=== PATIENT | male | born 1960 | race Caucasian/White ===

== ENCOUNTER 2023-03-19 20:05 | Inpatient (IN) | payer SELFPAY ==
[2023-03-19] VITALS (8 sets, daily range): BP systolic 99–156; BP diastolic 69–144; PULSE 92–104; RESP 18–26; TEMP 36.5–36.6; O2SAT 92–97; BMI 47.0; BMI 22.4
--- NOTE | 2023-03-19 20:25 | CT_ITS ---
We are attempting to reach an attending provider to discuss findings. An addendum with communication details will be sent when the communication is complete. INDICATION: Neuro deficit, acute, stroke suspected EXAMINATION: CT BRAIN - CT Head Stroke Protocol W/O Contrast Injection TECHNIQUE: Multiple axial images were obtained of the head without intravenous contrast. A radiation dose optimization technique was used for this scan. IV Contrast dosage and agent: None. COMPARISON: No relevant prior comparison study available FINDINGS: BRAIN PARENCHYMA: No intra- or extra-axial hemorrhage. No evidence of acute infarct. No intracranial mass or mass effect. There is preservation of the salgado/white matter interface. Posterior fossa structures are unremarkable. CSF SPACES: Probable small 4.4 cm) overlying the right frontal lobe. Otherwise CSF spaces Appropriate for age. No hydrocephalus. Basal cisterns are patent. CALVARIUM, SKULL BASE, PARANASAL SINUSES AND MASTOID AIR CELLS: Clear. Suspicious, diffusely chalky appearance to the entire small for which metastatic disease cannot be excluded. Correlate clinically and consider bone scan. ORBITS: Both globes, extraocular muscles, optic nerves and retrobulbar fat appear unremarkable. ASPECTS Score for Acute Strokes: 10 CT/STROKE Brain/Head without Cont IMPRESSION: No acute abnormality or evidence for CVA. Suspicious appearance of the skull, see comments above. Electronically Signed: Ken Claire MD at 20:53 EST ,
--- NOTE | 2023-03-19 20:25 | EKG12_ITS ---
Test Reason : STROKE Blood Pressure : / mmHG Vent. Rate : 095 BPM Atrial Rate : 095 BPM P-R Int : 168 ms QRS Dur : 074 ms QT Int : 360 ms P-R-T Axes : 054 042 -58 degrees QTc Int : 452 ms Normal sinus rhythm Low voltage QRS ST & T wave abnormality, consider inferior ischemia Abnormal ECG Confirmed by RUTH CONTRERAS, ABHISHEK ([id number]), newspaper editor managing MITCHELL BROWN ([id number]) on 03/28/2023 10:07:41 AM Referred By: Confirmed By:ABHISHEK MIRANDA MD
--- NOTE | 2023-03-19 20:26 | CT_ITS ---
STUDY: CTA HEAD AND NECK WITH CONTRAST REASON FOR EXAM: Male, 62 years old. Neuro deficit, acute, stroke suspected RADIATION DOSAGE (If Supplied By Facility): CTDIvol = ( 23.38 ) mGy, DLP = ( 706.36 ) mGycm TECHNIQUE: CT angiography was performed with a multi-detector CT scanner. Data acquisition was obtained from the skull base through the vertex following intravenous administration of IV 100mL Isovue-370. MIP images were reconstructed from the axial data set. Post-processing of the angiographic images was performed, with multiplanar reformation and 3D reconstruction. Individualized dose optimization techniques were used for this CT. COMPARISON: No relevant priors. FINDINGS: Normal bilateral petrous carotid arteries. Normal right cavernous carotid artery with a normal supraclinoid bifurcation. Normal left cavernous carotid artery with a normal supraclinoid bifurcation. Normal right A1 segments of the anterior cerebral artery. Normal left A1 segments of the anterior cerebral artery. Normal intact anterior communicating artery (ACOM). Normal bilateral A2 segments of the anterior cerebral arteries. Normal right M1 and M2 segments of the middle cerebral arteries, with a normal M1 bifurcation. Normal left M1 and M2 segments of the middle cerebral arteries, with a normal M1 bifurcation. Normal right posterior communicating artery (PCOM). Normal left posterior communicating artery (PCOM). Normal bilateral vertebral arteries. Normal basilar artery with a normal basilar bifurcation. The visualized bilateral superior cerebellar (SCA) arteries are normal. Normal bilateral P1, P2 and visualized P3 segments of the posterior cerebral arteries. There is no demonstrated aneurysm of the ramona of [place]. There is no demonstrated abnormality of the visualized brain. AORTIC ARCH: Normal visualized aortic arch. Normal origins of the brachiocephalic, left common carotid, and left subclavian arteries. RIGHT CAROTID ARTERIES: Normal right common carotid artery (CCA). Normal right common carotid bulb. Normal origin of the right internal carotid (ICA) artery without a hemodynamically significant stenosis. Normal visualized cervical portion of the right internal carotid artery. Normal origin of the right external carotid artery (ECA). LEFT CAROTID ARTERIES: Normal left common carotid artery (CCA). There is mild atherosclerotic plaque formation with minimal narrowing of the left carotid bulb. There is mild atherosclerotic plaque formation of the origin of the left internal carotid artery with less than 50% cross sectional diameter stenosis. Normal visualized cervical portion of the left internal carotid artery. Normal origin of the left external carotid artery (ECA). VERTEBRAL ARTERIES: Normal bilateral vertebral arteries. CT/STROKE CTA Head AND Neck W/Con IMPRESSION: Normal for age CTA Head and neck with contrast. No occlusions, no significant stenoses. N.B. : The above Results were Read Back by Ken Claire MD to Neymar Harvey and understanding confirmed on 03/19/2023 21:01:41 (ET). Electronically Signed: Ken Claire MD at 21:05 EST ,
--- NOTE | 2023-03-19 20:26 | EDS_ITS ---
HPI History of Present Illness Chief Complaint: Neuro S/Sx Detail of Chief Complaint: Difficulty with speech Informant: patient and family Narrative Narrative: Patient presents the emergency department with complaint of difficulty with spee ch that started rather suddenly approximately 1840 1 PM. Daughter was with patient taken him to doctor's appointment when he started having a difficult time saying what he wanted to say can only get about every third word out. Symptoms lasted about 10 minutes and then resolved. She did not notice any facial droop or weakness to the extremities. Patient currently being treated for prostate cancer with bone metastasis. Patient is lost 20 pounds in the last 33 days. Patient states that he can only take a few bites of food and he feels full and cannot eat anymore. He complains of pain in his back and down his left leg. Patient prostate cancer with metastasis to bone and lung. [facility] Medical History (Updated 03/19/23 @ 21:[address] Neymar Harvey, DO) Branchial cleft cyst History of chemotherapy Home Medications acetaminophen 650 mg tablet,extended release (Tylenol Arthritis Pain) 650 mg PO TID 01/04/23 [History Last Taken Unknown] calcium carbonate 600 mg calcium (1,500 mg) tablet 1,200 mg PO TIDWMEAL 01/04/23 [History Last Taken Unknown] enzalutamide 40 mg capsule (Xtandi) 160 mg PO DAILY 01/04/23 [History Last Taken Unknown] gabapentin 100 mg capsule 100 mg PO TID 01/04/23 [History Last Taken Unknown] leuprolide (3 month) 11.25 mg (3 month) intramuscular syringe kit (Lupron Depot) 11.25 mg IM [id number] 01/04/23 [History Last Taken Unknown] oxycodone 5 mg tablet See Rx Instructions PO Q6H 01/04/23 [History Last Taken Unknown] tamsulosin 0.4 mg capsule 0.4 mg PO QHS 01/04/23 [History Last Taken Unknown] Allergy/AdvReac Type Severity Reaction Status Date / Time No Known Allergies Allergy Verified 03/19/23 20:15 Social History (Updated 01/04/23 @ 14:06 by Katie Huerta) Smoking Status: Current every day smoker tobacco type: cigarettes alcohol intake: never ROS ROS ED Review of Systems ROS Unobtainable: other Constitutional Constitutional ED: Reports lethargy; Denies chills, fever(s), sweats or weight loss Eyes Eyes: Denies blurry vision, change in vision or diplopia ENT ENT ED: Denies rhinorrhea or sore throat Cardiovascular Cardiovascular: Denies chest pain, orthopnea or racing heartbeat Respiratory/Chest Respiratory/Chest: Denies cough, dyspnea, dyspnea on exertion, orthopnea or sputum Gastrointestinal Gastrointestinal: Reports other Details: Weight loss ; Denies abdominal pain, diarrhea, nausea or vomiting Genitourinary Genitourinary ED: Denies dysuria, hematuria or urinary frequency Musculoskeletal Musculoskeletal: Reports back pain; Denies arthralgias, myalgias or neck pain Integumentary Denies abscess, Abrasions or rash Neurologic Neurologic: Reports other Details: Expressive aphasia ; Denies headache(s) or weakness Psychiatric Psychiatric: Denies anxiety, depression or suicidal thoughts Endocrine Endocrinology: Denies polydipsia, polyphagia or polyuria Hematologic/Lymphatic Hematologic/Lymphatic: Denies easy bleeding, easy bruising or lymphadenopathy Allergic/Immunologic Allergic/Immunologic ED: Denies mouth swelling, tongue swelling or urticaria EXAM Physical Exam Const Vital Signs: 03/19/23 20:07 03/19/23 20:24 03/19/23 20:25 Temperature 97.8 F 97.8 F Temperature Source Temporal Temporal Pulse Rate 104 H Respiratory Rate 26 H 24 H Blood Pressure 156/144 H 99/69 Blood Pressure Mean 148 79 Pulse Ox 95 95 Oxygen Delivery Method Room Air Room Air Room Air 03/19/23 20:25 03/19/23 20:52 Temperature 97.9 F Temperature Source Temporal Pulse Rate 98 92 Respiratory Rate 25 H 24 H Blood Pressure 99/69 107/72 Blood Pressure Mean 79 83 Pulse Ox 97 95 Oxygen Delivery Method Room Air Room Air Positive well nourished and well developed General Appearance ED: well developed and NAD HEENT Reports TM's clear and moist mucous membranes normocephalic and atraumatic; Negative for trauma or tenderness Tympanic Membrane ED: Yes TM's clear Eyes PERRL and EOMs intact bilaterally General Eye ED: Negative for pale conjunctiva or scleral icterus Neck no lymphadenopathy, supple and no JVD General: Negative for tenderness Chest Wall inspection of chest normal and palpation of chest normal Chest: Negative for tenderness Resp normal respiratory effort and clear to auscultation bilaterally Effort and Inspection: Negative for respiratory distress or pain with movement Auscultation: Negative for rhonchi, wheezes or diminished lung sounds Cardio regular rate, regular rhythm, S1 normal heart sound, S2 normal heart sound and no murmurs Peripheral Pulses: pulses 2+ throughout GI normal to inspection, nondistended, normoactive bowel sounds, soft to palpation, non-tender, non-distended and no masses Back/Spine no CVA tenderness and no thoracic nor lumbar tenderness Extremity normal to inspection General Extremety ED: Negative for edema General Extremity: Negative for edema Neuro oriented x3, CN's II-XII intact bilaterally, no sensory deficits noted and gait normal Neuro Narrative: NIH stroke scale 0. No focal deficits noted on exam. No facial droop. Sensorium / Orientation: awake, alert, oriented to person, oriented to place and oriented to time Motor Exam: strength 5/5 throughout and strength abnormal Psych mental status grossly normal Skin no rashes or lesions noted and no wounds MDM MDM MDM Narrative Medical decision making narrative: Patient presents with expressive aphasia that is now resolved. Patient being treated for prostate cancer with mets to the bone and lung. Patient losing weight and deconditioned. I did call a stroke team after evaluating the patient. At this point I do not feel he will be a thrombolytic candidate as his symptoms have resolved. Patient seen by stroke neurologist and patient is not a thrombolytic candidate as his symptoms are resolved. In the differential would be metabolic process versus TIA. IV line established on arrival. EKG obtained showed a sinus rhythm with a rate of [address] changes with subtle ST depression anterior laterally which is new when compared with prior EKG from 2011. Patient went immediately to CT and brain CT showed no acute process. Patient also had CTA head and neck which were unremarkable. CT of the brain did show some lytic lesions of the calvarium which may be related to his bony metastasis from prostate cancer. CBC with differential obtained showed a white count 6.5 with hemoglobin 12.2 and platelet count of 38,000. Chemistries unremarkable. LFTs showed an elevated AST of 264 and alk phos of 640. Troponin was 291. Chest x-ray showed diffuse metastatic disease of the chest wall. No infiltrate or pneumothorax or other acute process noted. Case discussed with hospitalist will evaluate patient for admission. Lab Data Attestation: I reviewed the patient's lab results. Labs: Laboratory Results - last 24 hr 03/19/23 03/19/23 20:13 20:15 WBC 6.5 RBC 4.11 L Hgb 12.2 L Hct 40.3 MCV 98.1 H MCH 29.7 MCHC 30.3 L RDW Std Deviation 59.0 H RDW Coeff of Nano 17.1 H Plt Count 38 L* MPV TNP Immature Gran % (Auto) 3.400 H Neut % (Auto) 64.6 Lymph % (Auto) 23.3 [place] % (Auto) 7.1 Eos % (Auto) 0.5 Baso % (Auto) 1.1 H Absolute Neuts (auto) 4.2 Absolute Lymphs (auto) 1.51 Nucleated RBC % 0.8 Differential Comment SEE COMMENT Diff Path Review May foll Platelet Estimate MKD DEC RBC Morphology N CHROM Anisocytosis 1+ Macrocytosis 1+ Sodium 133 L Potassium 3.8 Chloride 103 Carbon Dioxide 17.0 L Anion Gap 13 BUN 18 Creatinine 0.77 Estim Creat Clear Calc 101.39 Est GFR (MDRD) Af Amer 132 Est GFR (MDRD) Non-Af 109 BUN/Creatinine Ratio 23.5 H Glucose 133 H Calcium 8.4 L Total Bilirubin 1.10 H Direct Bilirubin 0.23 AST 264 H ALT 48 Alkaline Phosphatase 640 H Troponin I High Sens 291 H* Total Protein 7.1 Albumin 2.9 L Globulin 4.2 Lipase 32 POC Glucose 136 H Radiography Diagnostic Testing: Clinical Impression(s) from Imaging Studies Brain CT 03/19/23 20:25 IMPRESSION: No acute abnormality or evidence for CVA. Suspicious appearance of the skull, see comments above. Electronically Signed: Ken Claire MD at 20:53 EST , ADDENDUM: 03/19/232107 IMPRESSION: No acute abnormality or evidence for CVA. Suspicious appearance of the skull, see comments above. N.B. : The above Results were Read Back by Ken Claire MD to Neymar Harvey DO, and understanding confirmed on 03/19/2023 21:01:49 (ET). Electronically Signed: Ken Claire MD at 20:53 EST , Head/Neck CTA 03/19/23 20:26 IMPRESSION: Normal for age CTA Head and neck with contrast. No occlusions, no significant stenoses. N.B. : The above Results were Read Back by Ken Claire MD to Neymar Harvey and understanding confirmed on 03/19/2023 21:01:41 (ET). Electronically Signed: Ken Claire MD at 21:05 EST , ADDENDUM: 03/19/232 IMPRESSION: Normal for age CTA Head and neck with contrast. No occlusions, no significant stenoses. N.B. : The above Results were Read Back by Ken Claire MD to Neymar Harvey and understanding confirmed on 03/19/2023 21:01:41 (ET). Electronically Signed: Ken Claire MD at 21:05 EST , Chest X-Ray 03/19/23 21:09 IMPRESSION: No acute cardiopulmonary disease seen. Diffuse metastatic prostate cancer. Electronically Signed: Ken Claire MD at 21:19 EST Reading Location ID and State: [facility] / [place] , Service support , 1 view chest x-ray obtained interpreted myself as no infiltrate or pneumothorax or acute process. Radiology noted diffuse metastatic prostate cancer EKG Initial EKG: Attestation: I personally reviewed and interpreted this EKG as follows: Comments: Sinus rhythm with a rate of [address] changes anterior laterally Discharge Plan Triage Chief Complaint: Neuro S/Sx ED Provider: Neymar Harvey Dx/Rx/DC Orders Clinical Impression: Brain TIA, Elevated troponin, Thrombocytopenia, Weakness Prescriptions: No Action tamsulosin 0.4 mg capsule 0.4 mg PO QHS Patient Comments: Take 1 capsule by mouth daily at bedtime. oxycodone 5 mg tablet See Rx Instructions PO Q6H Patient Comments: TAKE 1 TO 2 TABLETS BY MOUTH EVERY 6 HOURS NEEDED FOR PAIN Rx Instructions: 1-2 tabs orally every 6 hours; gabapentin 100 mg capsule 100 mg PO TID Xtandi 40 mg capsule 160 mg PO DAILY calcium carbonate 600 mg calcium (1,500 mg) tablet 1,200 mg PO TIDWMEAL acetaminophen [Tylenol Arthritis Pain] 650 mg tablet extended release 650 mg PO TID Lupron Depot (3 month) 11.25 mg syringe kit 11.25 mg IM [id number] Primary Care Provider: Domniick Zhu Referrals: Rusty Krishnan DO [Non-Staff] - Disposition Disposition: Acute Care Hospital [facility]
[2023-03-19 20:30] LABS: Bedside Glucose 136 mg/dL (74-106)
[2023-03-19] MEDS: 0.9% Normal Saline (1000mL) 1,000 ML 100 ML IV (20:30)
[2023-03-19 20:37] LABS: Absolute Lymphocyte Count 1.51 X10^3/uL (0.83-4.51); Absolute Neutrophil Count 4.2 X10^3/uL (2.0-7.7); Basophil# 0.07 X10^3/uL; Basophil% 1.1 % (0-1); Eosinophil# 0.03 X10^3/uL; Eosinophils% 0.5 % (0-5); Hematocrit 40.3 % (40-54); Hemoglobin 12.2 g/dL (13.0-16.5); Lymphocyte # 1.51 X10^3/ul (0.83-4.51); Lymphocyte % 23.3 % (19-41); Mean Corp Hgb Conc 30.3 g/dL (32-36); Mean Corpuscular Hgb 29.7 pg (27.0-32.0); Mean Corpuscular Volume 98.1 fL (80-94); Monocyte# 0.46 X10^3/uL; Monocyte% 7.1 % (0-10); NRBC Flagged by Analyzer 0.8 % (0-5); Neutrophil # 4.18 X10^3/uL (2.7-7.7); Neutrophil % 64.6 % (47-70); POSITIVE COUNT YES; RBC Distribution Width CV 17.1 % (11.6-14.6); Red Blood Count 4.11 M/mm3 (4.6-6.2); White Blood Count 6.5 K/mm3 (4.4-11.0)
[2023-03-19 20:38] LABS: Differential Indicated SCAN CRITERIA MET
[2023-03-19 20:42] LABS: Platelet Count 38 K/mm3 (150-450)
--- NOTE | 2023-03-19 20:49 | ED.RN ---
Tito SPOKE WITH WES BENNETT REGARDING SX. WES STATED THEY ELEVATE PT IN ROOM, NOT TO CALL STROKE. PT WAS ASYMPTOMATIC FOR STROKE SX UPON ARRIVAL TO TRIAGE.
[2023-03-19 20:59] LABS: Anisocytosis 1+; Macrocytosis 1+; Platelet Estimate MKD DEC (ADEQ); Red Cell Morphology N CHROM NORMAL (NORM C&C)
[2023-03-19 21:09] LABS: AST(SGOT) 264 U/L (15-37); Alanine Aminotransfer ALT/SGPT 48 U/L (16-61); Albumin, Serum 2.9 g/dL (3.2-5.0); Alkaline Phosphatase 640 U/L (45-117); Bilirubin, Direct 0.23 mg/dL (0.00-0.30); Globulin 4.2 g/dL (2.2-4.2); Protein, Total 7.1 g/dL (6.4-8.2)
--- NOTE | 2023-03-19 21:09 | RAD_ITS ---
STUDY: X-RAY CHEST REASON FOR EXAM: Male, 62 years old. Neuro deficit, acute, stroke suspected TECHNIQUE: Single AP portable view of the chest. COMPARISON: None. FINDINGS: The lungs are clear and expanded. There is no demonstrated pleural abnormality. Normal size heart. Normal mediastinum and arley. Normal visualized pulmonary arteries. Normal visualized aortic arch and descending thoracic aorta. Diffuse blastic disease throughout the skeletal structures consistent with metastatic prostate cancer. There is no demonstrated abnormality of the visualized soft tissue structures of the upper abdomen. RAD/Chest 1 View IMPRESSION: No acute cardiopulmonary disease seen. Diffuse metastatic prostate cancer. Electronically Signed: Ken Claire MD at 21:19 EST ,
[2023-03-19 21:10] LABS: Anion Gap 13 (5-15); BUN 18 mg/dL (7-18); BUN/Creat Ratio 23.5 RATIO (10-20); Calcium,Total 8.4 mg/dL (8.5-10.1); Chloride 103 mmol/L (98-107); Creatinine, Serum 0.77 mg/dL (0.70-1.30); EST Glomerular Filtration Rate 109 mL/min (>60); Est Glom Filt Rate - Afr Amer 132 mL/min (>60); Estimated Creatinine Clearance 101.39 ml/min; Glucose 133 mg/dL (74-106); Lipase 32 U/L (13-75); Potassium 3.8 mmol/L (3.5-5.1); Sodium Level 133 mmol/L (136-145); Troponin-I HS 291 pg/mL (3.0-78.0)
[2023-03-19 21:32] LABS: Partial Thromboplast Time 34.9 Seconds (24.1-36.2)
[2023-03-19 21:34] LABS: International Normalized Ratio 1.5
--- NOTE | 2023-03-19 21:34 | ECHOD_ITS ---
Reason For Study: TIA/CVA Procedure This was a 2D Doppler, Color Flow transthoracic echocardiogram. The study was technically difficult. Definity deferred due to elevated pulmonary pressures. Exam performed portable in patient room. Left Ventricle Normal left ventricle. The estimated ejection fraction is 55-60 %. Right Ventricle Normal right ventricle. Normal systolic function. Atria Normal left atrium. Normal right atrium. Bubble contrast study is negative for PFO/ASD. Mitral Valve The mitral valve is structurally normal. No prolapse or stenosis seen. Mild (1+) mitral valve insufficiency. Tricuspid Valve Normal tricuspid valve. Mild tricuspid valve insufficiency. Aortic Valve Normal aortic valve. Pulmonic Valve The pulmonic valve is not well visualized. Great Vessels Normal aortic root. Pericardium/Pleural No pericardial effusion. Medication Performed a rapid injection of agitated mix of 9 cc saline and 1cc air to assess for atrial septal defect. MMode/2D Measurements & Calculations RVDd: 5.3 cm Ao root diam: 3.6 cm RA A4 area: 24.7 cm2 Time Measurements MV dec time: 0.17 sec Doppler Measurements & Calculations MV E max zoltan: 50.3 cm/sec Lat Peak E' Zoltan: 15.9 cm/sec MV V2 max: 85.7 cm/sec MV A max zoltan: 73.1 cm/sec E/E' lat: 3.2 MV max P.9 mmHg MV E/A: 0.69 MV V2 mean: 43.5 cm/sec MV mean P.92 mmHg MV V2 VTI: 20.2 cm MV P1/2t max zoltan: 61.7 cm/sec PA V2 max: 62.5 cm/sec TR max zotlan: 404.4 cm/sec MV P1/2t: 61.0 msec TR max P.4 mmHg MV dec slope: 296.3 cm/sec2 MVA(P1/2t): 3.6 cm2 ECHO/Echo Complete Interpretation Summary The estimated ejection fraction is 55-60 % Negative bubble study with no evidence of intracardiac shunt or thrombus No significant change from prior echocardiogram done in November 25, 2010 Ordering Physician: Sahronda Dejesus Referring Physician: MD Audra Dominick Performed By: Nikita Mayer RCS
--- NOTE | 2023-03-19 21:34 | NM_ITS ---
CLINICAL: 62-year-old male with history of primary prostate carcinoma. WHOLE BODY 99m Tc MDP RADIONUCLIDE BONE SCINTIGRAPHY COMPARISON: None available FINDINGS: Following the intravenous administration of 26.7 mCi of 99m Tc MDP, whole body bone images reveal: 1. Increased tracer uptake is identified in the distal left femoral diaphysis, the right proximal tibial metaphysis-mid diaphysis, the right temporal skull, the right proximal femoral diaphysis. 2. Facilitated uptake is noted in the juxta arthrodial shoulders-bilateral proximal humerus. 3. Enhanced radiopharmaceutical concentration is noted in the acromioclavicular compartments of both shoulders, the elbows bilaterally, both knee articulations, the lower cervical spine posteriorly on the left, the left hip, the seventh-ninth thoracic vertebra. 4. The remaining skeletal structures are scintigraphically unremarkable with normal-appearing renal images and urinary bladder activity identified. Rotation artifact is identified in the left hemipelvis. Increased uptake is noted in the right zygoma and likely representing periostitis. NM/Bone Scan Whole Body IMPRESSION: 1.. The increase in tracer uptake noted in the distal left femoral diaphysis, the right proximal tibial metaphysis-mid diaphysis, the right temporal skull and right proximal femoral diaphysis may be attributed to osteoblastic turnover secondary to osseous metastatic disease. Plain film radiography correlation may be of benefit. 2. Facilitated uptake noted in the bilateral proximal humeral metaphysis may represent a marrow expansion process, blood dyscrasia. Plain film radiography correlation is recommended. 3. Degenerative arthrosis is demonstrated in both elbows, the bilateral shoulders, the right-left knee articulations, left hip, the cervical and thoracic spine. Electronically Signed: Terrance Andrea DO at 11:32 EST ,
--- NOTE | 2023-03-19 21:35 | HP.PCM.HOS_ITS ---
HPI - General General Date of Admission: 03/19/23 Date of Service: 03/19/23 Chief Complaint: Changes in speech HPI Narrative CAROLIN HERMAN, is a 62 M who presented to the emergency department at [facility] on 03/19/2023 at the direction of his primary care physician after he had an episode where he had difficulty getting his speech out. It started at 1841 this evening. He was with his daughter who was taking him to a doctor's appointment to address other issues he had been having at which point he started having difficulty saying what he wanted to say and could only get out about every other third word. The episode lasted 10 minutes and then resolved. He had no further symptoms. He has never had anything like this before. She did not notice any motor abnormalities including facial droop or extremity weakness. Patient is currently being treated for prostate cancer with bone metastasis. He reports he is lost about 20 pounds in the last 30 days and states that he can only take a few bites of food that are cold in nature before he feels full and cannot eat anymore. He states he feels like his stomach is the size of an orange and complains of significant early satiety. He also reports that if he eats anything warm he vomits immediately and has dry heaving. He has been having issues with lumbar radiculopathy for which she is being followed as an outpatient. He sees Dr. Sotomayor over at [facility] for his prostate cancer. Dr. Sotomayor is aware of his above symptoms with his weight loss and had him hold his Xtandi for about 2 weeks to see if this made any difference. It did not make any difference and he is restarted his medication since. He is also having pretty significant generalized weakness and pain in his hips knees and ankles. This has limited his ability to move and his mobility has decreased significantly as well. Vital signs on presentation showed temperature of 97.8, heart rate 104 with repeat at 98, blood pressure 156/144 with repeat at 105/71, respiratory rate been anywhere from 24-26 and his oxygen saturation has been 92 to 97% on room air. CBC shows a normal white count at 6.5 with a hemoglobin of 12.2 which is baseline compared to previous lab from 02/13/2023 however his platelet count was 38,000 which is down from 117,000 on the same date. Coags were slightly a bnormal with a PT of 18 and an INR of 1.5. PTT was normal at 34.9. I did obtain a D-dimer with his thrombocytopenia and mildly abnormal coags and it was 8.85 so I am proceeding with a CTA of the chest which is pending on admission. His chemistry panel showed mild hyponatremia with a sodium of 133 and a serum bicarb of 17 with normal renal function. His bilirubin was mildly elevated at 1.10 and this is an elevation of his indirect bilirubin as his direct bilirubin was normal. His AST was elevated at 264 and his alk phos was 640 with a normal GGT. A troponin was obtained and was 291. This was obtained per stroke protocol. The patient was not having any chest pain. His lipase was 32. CT of the brain demonstrated no acute abnormality of the brain however a suspicious appearance of the skull that is more consistent with metastatic disease. CTA of the head and neck was unremarkable for any occlusion or significant stenosis. He did have mild atherosclerotic plaque formation of the origin of the left internal carotid artery at less than 50%. Chest x-ray showed no acute cardiopul monary disease however he does have diffuse metastatic bony disease. When compared from previous lab work done on 02/13/2023 his alk phos was 360 and now is 640. His AST has gone up dramatically as well from 72-264. PFSH Medical History Bone cancer Branchial cleft cyst Chronic pain History of chemotherapy Lung cancer Osteoporosis Prostate cancer Smoker Home Medications acetaminophen 650 mg tablet,extended release (Tylenol Arthritis Pain) 1,300 mg PO BID pain 01/04/23 [History Last Taken Unknown] calcium carbonate 600 mg calcium (1,500 mg) tablet 1,200 mg PO TIDWMEAL 01/04/23 [History Last Taken Unknown] enzalutamide 40 mg capsule (Xtandi) 160 mg PO DAILY 01/04/23 [History Last Taken Unknown] gabapentin 100 mg capsule 100 mg PO BID pain 01/04/23 [History Last Taken Unknown] leuprolide (3 month) 11.25 mg (3 month) intramuscular syringe kit (Lupron Depot) 11.25 mg IM [id number] 01/04/23 [History Last Taken Unknown] oxycodone 5 mg tablet See Rx Instructions PO Q6H PRN pain 01/04/23 [History Last Taken Unknown] tamsulosin 0.4 mg capsule 0.4 mg PO QHS 01/04/23 [History Last Taken Unknown] Allergy/AdvReac Type Severity Reaction Status Date / Time No Known Allergies Allergy Verified 03/19/23 20:15 no surgical history Social History (Updated 03/19/23 @ 23:[address] Sharonda Dejesus, DO) household members: family housing: house Smoking Status: Current every day smoker tobacco type: cigarettes alcohol intake: never substance use type: does not use ROS Constitutional Constitutional: Reports anorexia, change in weight, fatigue, malaise and weakness; Denies chills, fever(s), night sweats or other Eyes Eyes: Denies blurry vision, change in eye color, change in vision, discharge from eye(s), double vision, erythema, eye pain, loss of vision or other ENT HEENT: Denies abnormal hearing, dysphagia, ear pain, epistaxis, headache(s), hearing loss, nasal congestion, nasal discharge, post nasal drip, sinus pressure, sore throat or other Cardiovascular Cardiovascular: Reports dyspnea on exertion; Denies chest pain, claudication, edema, lightheadedness, orthopnea, palpitations, paroxysmal nocturnal dyspnea, rapid heart rate, syncope or other Respiratory/Chest Respiratory/Chest: Reports shortness of breath with exertion; Denies cough, dyspnea, excessive phlegm production, hemoptysis, productive cough, shortness of breath at rest, wheezing or other Gastrointestinal Gastrointestinal: Reports nausea, vomiting and other Details: Early satiety Genitourinary Genitourinary: Reports nocturia and urinary frequency; Denies burning urination, difficulty urinating, dysuria, hematuria, urinary hesitancy, urinary incontinence, urinary urgency or other Musculoskeletal Musculoskeletal: Reports back pain, joint pain, joint stiffness and other Details: Bone pain Neurologic Neurologic: Denies abnormal gait, abnormal speech, confusion, disequilibrium, dizziness, focal weakness, headache(s), numbness, paresthesias, seizure-like activity, seizures, syncope, tingling, tremor(s) or other Psychiatric Psychiatric: Denies anxiety, depression, homicidal ideation, suicidal ideation or other Endocrine Endocrinology: Denies change in body appearance, cold intolerance, excessive sweating, heat intolerance, polydipsia, polyuria or other Hematologic/Lymphatic Hematologic/Lymphatic: Reports easy bruising; Denies anemia, easy bleeding, lym phadenopathy or other Allergic/Immunologic Allergic/Immunologic: Denies rhinitis, hives, eczemia, asthma or other Vital Signs Vital Signs Vital Signs: 03/19/23 20:07 03/19/23 20:24 03/19/23 20:25 Temperature 97.8 F 97.8 F Temperature Source Temporal Temporal Pulse Rate 104 H Respiratory Rate 26 H 24 H Blood Pressure 156/144 H 99/69 Blood Pressure Mean 148 79 Pulse Ox 95 95 Oxygen Delivery Method Room Air Room Air Room Air 03/19/23 20:25 03/19/23 20:52 Temperature 97.9 F Temperature Source Temporal Pulse Rate 98 92 Respiratory Rate 25 H 24 H Blood Pressure 99/69 107/72 Blood Pressure Mean 79 83 Pulse Ox 97 95 Oxygen Delivery Method Room Air Room Air Weight Weight: 149 kg Body Mass Index (BMI) 47.0 Physical Exam Const alert, oriented x3 and no apparent distress; Negative for healthy appearing or well nourished Constitutional Narrative: Upper middle-aged, white male, lying in bed, appears mildly older than stated age, appears comfortable and nontoxic, thin General Appearance: cooperative HEENT normocephalic and head/scalp atraumatic; Negative for hearing grossly normal bilaterally HEENT Narrative: Temporal wasting bilaterally, mild hearing loss, edentulous, Mallampati 2, no thrush Eyes PERRL, EOMs intact bilaterally and conjunctivae normal Eyes Narrative: No scleral icterus Neck no lymphadenopathy and supple Neck Narrative: Trachea midline, no thyroid enlargement Resp no retractions, no use of accessory muscles and clear to auscultation bilaterally Resp Narrative: Mildly diminished diffusely worse at the apices bilaterally but no adventitious sounds noted, mild tachypnea Auscultation: Negative for rales, rhonchi or wheezes Cardio regular rate, regular rhythm, S1 normal heart sound, S2 normal heart sound, no murmurs, no rub, no gallops and no clicks GI normal to inspection, nondistended, normoactive bowel sounds, soft to palpation and non-tender GI Narrative: Abdomen is scaphoid Extremity no clubbing, cyanosis or edema Extremity Narrative: Pedal pulses are 2+ Skin no wounds, skin turgor normal, no jaundice, No no petechiae and no mottling Skin Narrative: Mild petechiae noted Neuro oriented x3, CN's II-XII intact bilaterally, moves all extremities and no focal motor deficits Neuro Narrative: Lower extremity reflexes are 2+, significant generalized weakness noted with no focal deficits Speech: speech normal Psych affect normal Psych Narrative: Eye contact is good, patient is very pleasant, interacts appropriately Results Lab / Micro Data 03/19/23 20:15 03/19/23 20:15 Labs: Laboratory Results - last 24 hr 03/19/23 20:13: POC Glucose 136 H 03/19/23 20:15: WBC 6.5, RBC 4.11 L, Hgb 12.2 L, Hct 40.3, MCV 98.1 H, MCH 29.7, MCHC 30.3 L, RDW Std Deviation 59.0 H, RDW Coeff of Nano 17.1 H, Plt Count 38 L*, MPV TNP, Immature Gran % (Auto) 3.400 H, Neut % (Auto) 64.6, Lymph % (Auto) 23.3, [place] % (Auto) 7.1, Eos % (Auto) 0.5, Baso % (Auto) 1.1 H, Absolute Neuts (auto) 4.2, Absolute Lymphs (auto) 1.51, Nucleated RBC % 0.8, Differential Comment SEE COMMENT, Diff Path Review September, Platelet Estimate MKD DEC, RBC Morphology N CHROM, Anisocytosis 1+, Macrocytosis 1+, Sodium 133 L, Potassium 3.8, Chloride 103, Carbon Dioxide 17.0 L, Anion Gap 13, BUN 18, Creatinine 0.77, Estim Creat Clear Calc 101.39, Est GFR (MDRD) Af Amer 132, Est GFR (MDRD) Non-Af 109, BUN/Creatinine Ratio 23.5 H, Glucose 133 H, Calcium 8.4 L, Total Bilirubin 1.10 H, Direct Bilirubin 0.23, AST 264 H, ALT 48, Alkaline Phosphatase 640 H, Troponin I High Sens 291 H*, Total Protein 7.1, Albumin 2.9 L, Globulin 4.2, Lipase 32 03/19/23 21:08: PT 18.0 H, INR 1.5, APTT 34.[address] 03/19/23 20:25 IMPRESSION: No acute abnormality or evidence for CVA. Suspicious appearance of the skull, see comments above. Electronically Signed: Ken Claire MD at 20:53 EST , ADDENDUM: 03/19/232107 IMPRESSION: No acute abnormality or evidence for CVA. Suspicious appearance of the skull, see comments above. N.B. : The above Results were Read Back by Ken Claire MD to Neymar Harvey DO, and understanding confirmed on 03/19/2023 21:01:49 (ET). Electronically Signed: Ken Claire MD at 20:53 EST Reading Location ID and State: [facility] / [place] , Service support , Head/Neck CTA 03/19/23 20:26 IMPRESSION: Normal for age CTA Head and neck with contrast. No occlusions, no significant stenoses. N.B. : The above Results were Read Back by Ken Claire MD to Neymar Harvey and understanding confirmed on 03/19/2023 21:01:41 (ET). Electronically Signed: Ken Claire MD at 21:05 EST , ADDENDUM: 03/19/232111 IMPRESSION: Normal for age CTA Head and neck with contrast. No occlusions, no significant stenoses. N.B. : The above Results were Read Back by Ken Claire MD to Neymar Harvey and understanding confirmed on 03/19/2023 21:01:41 (ET). Electronically Signed: Ken Claire MD at 21:05 EST , Chest X-Ray 03/19/23 21:09 IMPRESSION: No acute cardiopulmonary disease seen. Diffuse metastatic prostate cancer. Electronically Signed: Ken Claire MD at 21:19 EST , Assessment & Plan Assessment/Plan (1) Elevated troponin: (2) Thrombocytopenia: (3) Dysarthria: (4) Weakness: (5) Severe malnutrition: (6) Abnormal skull or facial bone diagnostic imaging: (7) Early satiety: (8) Weight loss: PLAN: Plan Dysarthria -Episode lasted about 10 minutes -Now back to baseline -We will have to hold aspirin with a platelet count of less than 50,000 -Check MRI of the brain -Check echocardiogram -Check lipid level -Start atorvastatin 80 mg daily -PT/OT -Bedside swallow eval and speech therapy order if needed Elevated D-dimer -Patient with history of cancer -We will check CTA of the chest with tachypnea and elevated troponin -Echocardiogram is pending for a.m. with above work-up for TIA/stroke -We will not be able to anticoagulate if PE present due to severe thrombocytopenia and would recommend IVC filter placement Troponin elevation -Patient without chest pain -Patient has subtle EKG changes from EKG compared about 10 years ago with flattening of the T waves inferior laterally -We will cycle cardiac enzymes -Check lipids as above -Hold off on aspirin given severe thrombocytopenia -High intensity dose atorvastatin at this time -Echocardiogram is pending Severe thrombocytopenia -Last platelet counts from 02/13/2023 was 117,000 -Currently platelet count is 38,000 -Mild elevation of coags with elevated D-dimer--> could be low-level DIC -Check JOHNATHAN smear -If D-dimer not elevated due to PE or lower extremity DVT would consider heme- onc consultation(follows with Dr. Sotomayor) -Could be from bony metastasis however I would expect all of his cell lines to be more significantly impacted if this was the etiology Early satiety/weight loss/severe malnutrition -GI consultation for possible EGD consideration -Generalized diet while here -Supplementation with liquid supplements -Patient with about 20 pound weight loss in the last month and has temporal wasting and significant generalized weakness Abnormal imaging -Patient with what appears to be diffuse metastatic disease -GGT is normal with significantly elevated alk phos that is worsening -Last alk phos on 1010 was 360 and now up to greater than 600 -We will assess with bone scan--> patient states he gets 1 about every 6 months we will need to identify his most recent once we have results from current -This could be related to worsening metastatic disease related to his prostate cancer Generalized weakness -Etiology is unclear -We will check CK -PT/OT consultation -Case management/social work consultation for discharge planning as patient may need further therapy at discharge BPH/prostate cancer with bony metastasis -Patient is on Xtandi and Lupron as well as Zometa -Zometa is to stop in June 2023 -Extent of bony metastasis is unclear however appears to be significant on most recent imaging -Bone scan is pending -Continue Flomax -Follows with Dr. Sotomayor Chronic pain -Continue gabapentin -Continue oxycodone Tobacco abuse -Recommend cessation -Patient denies need for nicotine patch DVT prophylaxis -SCDs -Chemoprophylaxis contraindicated due to severe thrombocytopenia with a platelet count of 30,000 CODE STATUS -Full code as verified on admission Charges/Coding Visit Charges Inpatient E&M: 67396 Init Hosp L3
[2023-03-19 21:48] LABS: GGTP 49 U/L (15-85)
[2023-03-19 22:48] LABS: D-Dimer Quantitative (DVT/PE) 8.85 FEU/ug/m (0.27-0.49)
--- NOTE | 2023-03-19 22:50 | NURSING ---
Pts primary rn aware of critical d dimer of 8.85 at this time
--- NOTE | 2023-03-19 22:57 | CT_ITS ---
STUDY: CTA CHEST REASON FOR EXAM: Male, 62 years old. PE neural deficit. Stroke suspected. RADIATION DOSAGE (If Supplied By Facility): CTDIvol = ( 12.87 ) mGy, DLP = ( 422.16 ) mGycm TECHNIQUE: The examination was performed with the intravenous administration of IV 100mL Isovue-370. Post-processing of the angiographic images was performed, with multiplanar reformation and 3D reconstruction. Individualized dose optimization techniques were used for this CT. COMPARISON: Chest radiograph March 19, 2023. FINDINGS: Unremarkable thyroid. Normal enhancement of the bilateral pulmonary arteries. There is no demonstrated pulmonary embolism. No main pulmonary arterial enlargement. Aortic atherosclerosis without ectasia or dissection. No cardiomegaly. No pericardial effusion. Mild calcified coronary atherosclerosis. No mediastinal or hilar adenopathy. Unremarkable esophagus. No endobronchial lesion. Mild upper lung paraseptal and diffuse centrilobular emphysematous change. 1.2 cm left lower lobe rounded groundglass glass opacity. Consolidation, effusion, or pneumothorax. Mild scattered bilateral peripheral scarring. Diffuse sclerotic metastatic disease. No visible fracture. Normal visualized upper abdomen. CT/CTA Chest W/WO Contrast IMPRESSION: No evidence of pulmonary embolism or consolidative pneumonia. Diffuse emphysematous change. Rounded 1.2 cm nodular groundglass opacity in the left lower lobe which may represent atelectasis or scarring. Neoplastic process is not excluded. CT follow-up is recommended in 6 months to assess for resolution. Diffuse sclerotic osteoblastic metastatic disease Electronically Signed: Geovani Rob MD at 0:29 EST ,
[2023-03-19] MEDS: Gabapentin 100 MG Capsule PO (23:21)
[2023-03-19] MEDS: oxyCODONE 5 MG Tablet PO (23:21)
[2023-03-19 23:59] LABS: Troponin-I HS 376 pg/mL (3.0-78.0)
[2023-03-20] VITALS (17 sets, daily range): BP systolic 76–107; BP diastolic 51–71; PULSE 72–110; RESP 16–20; TEMP 36.4–37.1; O2SAT 89–99; BMI 22.4
[2023-03-20] MEDS: Tamsulosin HCl 0.4 MG Capsule PO (00:27)
[2023-03-20] MEDS: Atorvastatin Calcium 80 MG Tablet PO ×2 (00:27→21:37)
[2023-03-20] MEDS: Lactated Ringers 1,000 ML 75 ML IV ×2 (00:27→12:16)
--- NOTE | 2023-03-20 00:56 | VDLE_ITS ---
Reason For Study: elevated D-Dimer RIGHT LEFT GSV is normal. GSV is normal. CFV is compressible, spontaneous, competent CFV is compressible, spontaneous, competent, and demonstrates pulsatile venous flow. and demonstrates pulsatile venous flow. FV is compressible, spontaneous, competent FV is compressible, spontaneous, competent and demonstrates pulsatile venous flow. and demonstrates pulsatile venous flow. POP V is compressible, spontaneous, competent POP V is compressible, spontaneous, competent and demonstrates pulsatile venous flow. and demonstrates pulsatile venous flow. T/P Trunk is compressible. T/P Trunk is compressible. PTV is compressible. PTV is compressible. RT PerV is compressible. LT PerV is compressible. Procedure This is a venous duplex using B-mode, color flow and spectral Doppler. Exam performed portable in patient room. The exam was diagnostic. A preliminary report was called and/or faxed to the pt's RN and Dr. Rodríguez. VL/Venous Duplex US - Donald Extrem Interpretation Summary Deep veins of the bilateral lower extremities are patent and compressible segme ntally. There is no evidence of bilateral lower extremity deep vein thrombosis. The bilateral great saphenous veins appear patent and compressible segmentally. Ordering Physician: Sharonda Dejesus Performed By: Feliciano Goode, RVT
--- NOTE | 2023-03-20 00:57 | PCM.HOSP.N ---
Hospitalist Note D-dimer elevated and CTA of the chest was unremarkable. We will check lower extremity Dopplers. Could be related to low-level DIC as well and peripheral smear is pending.
[2023-03-20 04:30] LABS: Cholesterol 123 mg/dL (200); High Density Lipoprotein 23 mg/dL; Triglycerides 215 mg/dL; Very Low Density Lipoprotein 43 mg/dL (5-40)
[2023-03-20 04:40] LABS: Troponin-I HS 471 pg/mL (3.0-78.0)
[2023-03-20] MEDS: Acetaminophen 500 MG Tablet 1000 MG PO ×3 (06:45→21:37)
--- NOTE | 2023-03-20 08:09 | PCM.PN.HOSP ---
Reason for Visit Reason for Visit: Diagnoses Thrombocytopenia, unspecified (03/19/23) Unspecified severe protein-calorie malnutrition (03/19/23) Dysarthria and anarthria (03/19/23) Weakness (03/19/23) Abnormal weight loss (03/19/23) Early satiety (03/19/23) Other specified abnormal findings of blood chemistry (03/19/23) Abnormal findings on diagnostic imaging of skull and head, not elsewhere classified (03/19/23) Subjective Subjective Feeling tired overall, has had no more neuro complaints however Objective Data Objective Data Vital Signs: Vital Signs Temp Pulse Resp BP Pulse Ox O2 Del Method 98.5 F 94 18 94/65 92 Room Air 03/20/23 06:00 03/20/23 06:00 03/20/23 06:00 03/20/23 06:00 03/20/23 06:00 03/20/23 06:00 Oxygen Delivery Method Room Air Weight: 68.9 kg Body Mass Index (BMI) 22.4 Intake & Output: Intake and Output for Last 24 Hours 03/18/23 03/19/23 03/20/23 23:59 23:59 23:59 Intake Total 1300 / 1300 Balance 1300 / 1300 Lab / Micro Data 03/20/23 08:52 03/20/23 08:52 Labs: Laboratory Results - last 24 hr 03/19/23 20:13: POC Glucose 136 H 03/19/23 20:15: WBC 6.5, RBC 4.11 L, Hgb 12.2 L, Hct 40.3, MCV 98.1 H, MCH 29.7, MCHC 30.3 L, RDW Std Deviation 59.0 H, RDW Coeff of Nano 17.1 H, Plt Count 38 L*, MPV TNP, Immature Gran % (Auto) 3.400 H, Neut % (Auto) 64.6, Lymph % (Auto) 23.3, [place] % (Auto) 7.1, Eos % (Auto) 0.5, Baso % (Auto) 1.1 H, Absolute Neuts (auto) 4.2, Absolute Lymphs (auto) 1.51, Nucleated RBC % 0.8, Differential Comment SEE COMMENT, Diff Path Review May foll, Platelet Estimate MKD DEC, RBC Morphology N CHROM, Anisocytosis 1+, Macrocytosis 1+, Sodium 133 L, Potassium 3.8, Chloride 103, Carbon Dioxide 17.0 L, Anion Gap 13, BUN 18, Creatinine 0.77, Estim Creat Clear Calc 101.39, Est GFR (MDRD) Af Amer 132, Est GFR (MDRD) Non-Af 109, BUN/Creatinine Ratio 23.5 H, Glucose 133 H, Calcium 8.4 L, Total Bilirubin 1.10 H, Direct Bilirubin 0.23, GGT 49, AST 264 H, ALT 48, Alkaline Phosphatase 640 H, Troponin I High Sens 291 H*, Total Protein 7.1, Albumin 2.9 L, Globulin 4.2, Lipase 32 03/19/23 21:08: PT 18.0 H, INR 1.5, APTT 34.9, D-Dimer Quant (PE/DVT) 8.85 H* 03/19/23 23:00: Troponin I High Sens 376 H* 03/20/23 03:41: Troponin I High Sens 471 H*, Triglycerides 215 H, Cholesterol 123, LDL Cholesterol 57, VLDL Cholesterol 43 H, HDL Cholesterol 23 L Radiography Diagnostic Testing: Radiology Impression Brain CT 03/19/23 20:25 IMPRESSION: No acute abnormality or evidence for CVA. Suspicious appearance of the skull, see comments above. Electronically Signed: Ken Claire MD at 20:53 EST , ADDENDUM: 03/19/232107 IMPRESSION: No acute abnormality or evidence for CVA. Suspicious appearance of the skull, see comments above. N.B. : The above Results were Read Back by Ken Claire MD to Neymar Harvey DO, and understanding confirmed on 03/19/2023 21:01:49 (ET). Electronically Signed: Ken Claire MD at 20:53 EST , Head/Neck CTA 03/19/23 20:26 IMPRESSION: Normal for age CTA Head and neck with contrast. No occlusions, no significant stenoses. N.B. : The above Results were Read Back by Ken Claire MD to Neymar Harvey and understanding confirmed on 03/19/2023 21:01:41 (ET). Electronically Signed: Ken Claire MD at 21:05 EST , ADDENDUM: 03/19/232 IMPRESSION: Normal for age CTA Head and neck with contrast. No occlusions, no significant stenoses. N.B. : The above Results were Read Back by Ken Claire MD to Neymar Harvey and understanding confirmed on 03/19/2023 21:01:41 (ET). Electronically Signed: Ken Claire MD at 21:05 EST , Chest X-Ray 03/19/23 21:09 IMPRESSION: No acute cardiopulmonary disease seen. Diffuse metastatic prostate cancer. Electronically Signed: Ken Claire MD at 21:19 EST , Chest CTA 03/19/23 22:57 IMPRESSION: No evidence of pulmonary embolism or consolidative pneumonia. Diffuse emphysematous change. Rounded 1.2 cm nodular groundglass opacity in the left lower lobe which may represent atelectasis or scarring. Neoplastic process is not excluded. CT follow-up is recommended in 6 months to assess for resolution. Diffuse sclerotic osteoblastic metastatic disease Electronically Signed: Geovani Rob MD at 0:29 EST , Physical Exam Narrative General: Alert, oriented, no apparent distress HEENT: Atraumatic, normocephalic Eyes: Anicteric, normal conjunctiva, extraocular movements intact, pupils equal Neck: Supple Respiratory: Clear to auscultation bilaterally, normal respiratory effort Cardiovascular: Regular rate and rhythm GI: Soft, nontender, nondistended Extremities: No edema Musculoskeletal: Strength 5 out of 5 in right upper extremity, 5 out of 5 left upper extremity, unable to assess bilateral lower extremities thoroughly due to pain when he moves them Neuro: No overt focal neurological deficits, cranial nerves II through XII intact, [id number] without significant difficulty bilaterally Skin: No rashes appreciated Psych: Cooperative Assessment & Plan Assessment/Plan (1) Elevated troponin: (2) Thrombocytopenia: (3) Dysarthria: (4) Weakness: (5) Severe malnutrition: (6) Abnormal skull or facial bone diagnostic imaging: (7) Early satiety: (8) Weight loss: PLAN: Plan 62-year-old male history of prostate cancer with metastasis presently on treatment following with Dr. Sotomayor presented to [facility] 03/19/2023 with difficulty with speech that started suddenly at 1 PM and had what sounded to be expressive aphasia. Symptoms lasted for 10 minutes and then resolved. Patient was a stroke call in the ED and it was recommended patient have toxic metabolic work-up and TIA evaluation. Additionally patient reports diffuse weakness and rapid weight loss as well as early satiety with 20 pound weight loss in 30 days. He can only tolerate several bites of cold food for he feels full and cannot eat and if he eats anything warm he vomits immediately and has dry heaving. Patient with elevated AST and alk phos as well as low platelets and elevated troponin. Hospitalist contacted for admission. 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 Platelets are 23, spoke with [facility] stroke physician and given patient's current complicated clinical status with bilateral infarcts he was agreeable to transfer to [facility] Elevated D-dimer -Patient with history of cancer -We will check CTA of the chest with tachypnea and elevated troponin -Echocardiogram is pending for a.m. with above work-up for TIA/stroke -We will not be able to anticoagulate if PE present due to severe thrombocytopenia and would recommend IVC filter placement -03/20: CTA negative, may be elevated secondary to cancer. Nuclear medicine whole-body scan for metastatic disease, bilateral lower extremity duplex Troponin elevation -Patient without chest pain -Patient has subtle EKG changes from EKG compared about 10 years ago with flattening of the T waves inferior laterally -We will cycle cardiac enzymes -Check lipids as above -Hold off on aspirin given severe thrombocytopenia -High intensity dose atorvastatin at this time -Echocardiogram is pending -03/20: Initial troponin 291 up trended to 471, will repeat as it has continued to go up, echo pending Severe thrombocytopenia -Last platelet counts from 02/13/2023 was 117,000 -Currently platelet count is 38,000 -Mild elevation of coags with elevated D-dimer--> could be low-level DIC -Check JOHNATHAN smear -If D-dimer not elevated due to PE or lower extremity DVT would consider heme-onc consultation(follows with Dr. Sotomayor) -Could be from bony metastasis however I would expect all of his cell lines to be more significantly impacted if this was the etiology -03/20: Holding aspirin, trending CBC, oncology consulted. Patient does not seem to be in DIC, additional lab work-up ordered per oncology and it is recommended that patient be transferred to tertiary facility and there is concern for catastrophic APLS Early satiety/weight loss/severe malnutrition -GI consultation for possible EGD consideration -Generalized diet while here -Supplementation with liquid supplements -Patient with about 20 pound weight loss in the last month and has temporal wasting and significant generalized weakness -03/20: Diet supplementation, GI consultation. Discussed with GI and no current plans for EGD, diet added for patient. We will start with full liquid diet Abnormal imaging -Patient with what appears to be diffuse metastatic disease -GGT is normal with significantly elevated alk phos that is worsening -Last alk phos on 1010 was 360 and now up to greater than 600 -We will assess with bone scan--> patient states he gets 1 about every 6 months we will need to identify his most recent once we have results from current -This could be related to worsening metastatic disease related to his prostate cancer -03/20: CTA with diffuse sclerotic osteoblastic metastatic disease and rounded 1.2 cm nodular groundglass opacity in left lower lobe which may represent atelectasis or scarring but neoplastic process cannot be excluded. Oncology consulted Generalized weakness -Etiology is unclear -We will check CK -PT/OT consultation -Case management/social work consultation for discharge planning as patient may need further therapy at discharge -03/20: PT/OT BPH/prostate cancer with bony metastasis -Patient is on Xtandi and Lupron as well as Zometa -Zometa is to stop in June 2023 -Extent of bony metastasis is unclear however appears to be significant on most recent imaging -Bone scan is pending -Continue Flomax -Follows with Dr. Sotomayor -03/20: Continue home medications at present, CTA showed diffuse sclerotic osteoblastic metastatic disease, nuclear med bone scan ordered, will consult oncology Chronic pain -Continue gabapentin -Continue oxycodone Tobacco abuse -Recommend cessation -Patient denies need for nicotine patch DVT prophylaxis -SCDs -Chemoprophylaxis contraindicated due to severe thrombocytopenia with a platelet count of 30,000 CODE STATUS -Full code as verified on admission Time spent in the patient's overall evaluation,decision-making process, review of diagnostic data, adjustment of management, discussion with other providers, nursing nursing and ancillary staff involved in patient's care documentation, 51 minutes Charges/Coding Visit Charges Inpatient E&M: 22117 [facility] Hosp L3
--- NOTE | 2023-03-20 09:00 | MRI_ITS ---
We are attempting to reach an attending provider to discuss findings. An addendum with communication details will be sent when the communication is complete. EXAM: MR HEAD WITHOUT INTRAVENOUS CONTRAST CLINICAL INDICATION: TIA TECHNIQUE: Multiplanar and multisequence MR images of the brain were obtained without intravenous contrast. COMPARISON: CT head without contrast and CTA head with contrast 03/19/2023. FINDINGS: BRAIN AND EXTRA-AXIAL SPACES: Small dots of diffusion restrictions in both cerebellar hemispheres are confirmed on ADC maps. These are acute microembolic ischemic infarcts. No other focal signal abnormalities throughout the brain parenchyma. Normal ventricles and cisterns.. SELLA: Unremarkable. Normal sella turcica, pituitary gland, infundibular stalk, optic chiasm and hypothalamus. AUDITORY SYSTEM: Unremarkable. The internal auditory canals are patent. BONES/JOINTS: See below. SINUSES: Unremarkable as visualized. Clear. MASTOID AIR CELLS: Unremarkable as visualized. Clear. ORBITS: Unremarkable as visualized. Both globes, extraocular muscles, optic nerves and retrobulbar fat appear unremarkable. SOFT TISSUES: Mucosal edema of both temporal mastoid bones are non-coalescent. MRI/Brain without Contrast IMPRESSION: 1. Tiny acute microembolic ischemic infarcts in both cerebellar hemispheres. 2. Mild mucosal edema of both temporal mastoid bones. Electronically Signed: Ricci Grijalva MD at 10:37 EST ,
--- NOTE | 2023-03-20 09:04 | NURSING ---
Patient left unit for MRI and Nuclear Med testing. Patient stable upon leaving unit. IVF infusing. BP low- asymptomatic, MD aware.
[2023-03-20 09:15] LABS: Absolute Lymphocyte Count 1.34 X10^3/uL (0.83-4.51); Absolute Neutrophil Count 2.7 X10^3/uL (2.0-7.7); Basophil# 0.03 X10^3/uL; Basophil% 0.7 % (0-1); Eosinophil# 0.02 X10^3/uL; Eosinophils% 0.4 % (0-5); Hematocrit 27.8 % (40-54); Hemoglobin 9.4 g/dL (13.0-16.5); Lymphocyte # 1.34 X10^3/ul (0.83-4.51); Lymphocyte % 29.8 % (19-41); Mean Corp Hgb Conc 33.8 g/dL (32-36); Mean Corpuscular Hgb 30.3 pg (27.0-32.0); Mean Corpuscular Volume 89.7 fL (80-94); Monocyte# 0.34 X10^3/uL; Monocyte% 7.6 % (0-10); NRBC Flagged by Analyzer 0.9 % (0-5); Neutrophil # 2.67 X10^3/uL (2.7-7.7); Neutrophil % 59.5 % (47-70); POSITIVE COUNT YES; RBC Distribution Width CV 16.7 % (11.6-14.6); RBC Distribution Width SD 53.4 fl (35.1-43.9); White Blood Count 4.5 K/mm3 (4.4-11.0)
[2023-03-20 09:43] LABS: Platelet Count 24 K/mm3 (150-450)
[2023-03-20 09:44] LABS: Differential Indicated SCAN CRITERIA MET
[2023-03-20 09:46] LABS: Differential Comment SCANNED; Platelet Estimate MKD DEC (ADEQ); Platelet Morphology LARGE
[2023-03-20 10:02] LABS: ALB/GLOB Ratio 0.8 RATIO (0.9-2.4); AST(SGOT) 218 U/L (15-37); Alanine Aminotransfer ALT/SGPT 41 U/L (16-61); Albumin, Serum 2.6 g/dL (3.2-5.0); Alkaline Phosphatase 511 U/L (45-117); Anion Gap 10 (5-15); BUN 16 mg/dL (7-18); BUN/Creat Ratio 27.4 RATIO (10-20); Calcium,Total 7.8 mg/dL (8.5-10.1); Chloride 107 mmol/L (98-107); Creatinine, Serum 0.58 mg/dL (0.70-1.30); EST Glomerular Filtration Rate 149 mL/min (>60); Est Glom Filt Rate - Afr Amer 180 mL/min (>60); Estimated Creatinine Clearance 127.04 ml/min; Globulin 3.3 g/dL (2.2-4.2); Glucose 107 mg/dL (74-106); Potassium 3.6 mmol/L (3.5-5.1); Protein, Total 5.9 g/dL (6.4-8.2); Sodium Level 137 mmol/L (136-145); Troponin-I HS 540 pg/mL (3.0-78.0)
--- NOTE | 2023-03-20 10:35 | NURSING ---
Patient back in room
--- NOTE | 2023-03-20 10:53 | NURSING ---
Late due to patient off unit for testing (MRI, Nuclear med)
--- NOTE | 2023-03-20 11:50 | CASEMGMT ---
DERICK DEGROOT Face to Face with patient for initial transition planning/care coordination assessment. RN CM introduced self and role at [facility]. Patient lying in bed, alert and oriented, and son at bedside. Patient willing to participate in assessment and is able to answer all questions appropriately. Care providers, pharmacy, and demographics verified. Patient wishes to discharge home, will monitor for HHC at discharge. Patient states he has no further needs or concerns at this time. CM to follow for discharge planning needs that may arise. PCP: Audra Specialists: Opal urologist; Bran, oncologist Preferred Pharmacy: [facility] Insurance: none, SW notified interested in completing Medicaid arielle Prescription Benefit: none Living Will/HPOA: none LNOK: , son Living Arrangements: Patient lives with and son in a mobile home with 5 steps and railing to enter the home. Patient states he was independent at home but would help at times. Transportation: DME/HHC: Patient has shower chair, raised toilet, cane, walker, grab bars at home. No previous HHC or SNF Disposition Plan: Patient to discharge home with family support and follow-up plans in place. Will monitor for HHC at discharge. Sia JOHNSON, RN, CM
[2023-03-20 14:42] LABS: LDH 780 U/L (87-241)
[2023-03-20 14:43] LABS: Bilirubin, Direct 0.28 mg/dL (0.00-0.30); Immature Platelet Fraction 26.6 % (1.0-7.9); Platelet Count 23 K/mm3 (150-450); RET-HE 33.4 pg (30-35); Reticulocyte Count 3.86 % (0.5-1.5)
[2023-03-20 14:44] LABS: Fibrinogen 287 mg/dl (203-444)
--- NOTE | 2023-03-20 15:40 | CHAPLAIN ---
Type of Pastoral Visit _x__ Initial Visit ___ Follow-up Visit ___ On-call Visit ___ General Patient Visit ___ Spiritual Assessment ___ Family Conference ___ Bereavement ___ Rapid Response ___ Code Blue ___ Other (describe below) Pastoral Care Referral From _x__ Patient _x__ Family ___ Nurse ___ Physician ___ Wire Bound Box Machine Helper ___ Adult Care Provider ___ Other (describe below) Sacrament/Intervention _x__ Active listening ___ Anointing ___ Gnosticism ___ Bereavement ___ Communion ___ Arabella exploration ___ ___ Life review _x__ Prayer ___ Reconciliation ___ Sacrament of Sick _x__ Supportive presence ___ Wedding ___ Other (describe below) Pastoral Comments patient was just returned to bed and admits to being tired and not given much chance to rest here; offer to make visit brief but to understand any needs for patient; spouse is with pt in the room; pt states that his concern is having to go to another hospital but otherwise not sure of any needs; pt is not affiliated with a taoist fellowship but would accept a prayer if you want; pt and spouse deny any other concerns
--- NOTE | 2023-03-20 16:41 | ONC.CONSULT ---
Assessment & Plan Assessment/Plan (1) Elevated troponin: Status: Acute Code(s): R79.89 - Other specified abnormal findings of blood chemistry (2) Thrombocytopenia: Status: Acute Code(s): D69.6 - Thrombocytopenia, unspecified (3) Early satiety: Status: Acute Code(s): R68.81 - Early satiety (4) Weight loss: Status: Acute Code(s): R63.4 - Abnormal weight loss (5) Anemia: Status: Acute Code(s): D64.9 - Anemia, unspecified Qualifiers: Anemia type: unspecified type Qualified Code(s): D64.9 - Anemia, unspecified (6) Prostate cancer metastatic to bone: Status: Acute Code(s): C61 - Malignant neoplasm of prostate; C79.51 - Secondary malignant neoplasm of bone (7) Low back pain: Status: Acute Code(s): M54.50 - Low back pain, unspecified Qualifiers: Back pain laterality: midline Chronicity: chronic Sciatica presence: without sciatica Qualified Code(s): M54.50 - Low back pain, unspecified; G89.29 - Other chronic pain Plan: Impression: -Worsening thrombocytopenia and anemia associated with mild prolongation of protime, normal fibrinogen, significant increase in LDH with normal bilirubin but elevated AST and alkaline phosphatase. Direct Vasyl test negative. -No sign of GI bleeding. -Peripheral blood smear reviewed with Dr. Romero. No schistocytes observed. No large or giant platelets observed. Findings not consistent with leukoerythroblastic picture. No evidence of MAHA making TTP and DIC unlikely. -Time course of thrombocytopenia starting as outpatient is not suggestive of KIEL. -Increasing troponin I. No chest pain or other cardiac symptoms currently. -No exam findings suggestive of vasculitis. 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 -Declining PSA on ADT with second-generation antiandrogen therapy. -Unexplained early satiety. -Overall clinical picture is concerning for possible catastrophic antiphospholipid antibody syndrome although the pattern of cerebellar infarcts is unusual. Plan: -Hesitant to start anticoagulation without more evidence to support APLS. -Awaiting haptoglobin, anticardiolipin antibodies and STAT lupus anticoagulant. -Reasonable to start high dose steroids. -Recommend cardiology consult. -CT A/P. -Transfer to tertiary center [facility]. -Discussed with Dr. Kelly. HPI Consult Data Date of Service:: 03/20/23 PCP / Referring Provider: Dr. Dominick Zhu MD Attending: Dr. Eileen Kelly MD Chief Complaint Chief Complaint: Thrombocytopenia History of Present Illness History of Present Illness: The patient is a 62-year-old male with a past medical history significant for metastatic prostate cancer. Originally presented with low back and hip pain in early 2020. Biopsy of the prostate performed on 06/25/2020 demonstrated disease in all 12 cores. 3 of the cores contained [place] score 4+3 equal 7 (grade group 3) involving 100% of the cores. Initial PSA was 3733 ng/mL. He had diffuse osteoblastic disease on initial staging work-up. He was started on therapy with ADT consisting of Lupron. He received docetaxel x6 cycles between 07/16/2020 and 11/18/2020. He has remained on ADT and enzalutamide 160 mg daily. PSA has been incrementally decreasing since last summer. Most recent level was 2.08 ng/mL when measured on 02/13/2023. He felt well up until about 3 weeks ago when he developed the onset of diarrhea and loss of appetite. He had mild nausea associated with the loss of appetite but describes a sensation of very early satiety as if his stomach were the size of his fist when he tried to eat. He does not recall having any fevers or shaking chills. He had no bloody diarrhea. The diarrhea has subsided but the loss of appetite and early satiety persisted and he has lost about 20 pounds in the last month or so. He was on his way to see his primary care physician when he had the onset of expressive aphasia. He recalls being able to think of the words he wanted to say but could not get the words out. He was sent to the ED. Symptoms resolved. MRI brain today results noted. He didn't have any motor symptoms. On 02/13/2023 CBC revealed a platelet count of 117,000. It was 152,000 in November 2022 and 239,000 in August 2022. On presentation to the ED here, the platelet count was 38,000 with a hemoglobin of 12.2 g/dL. Today the hemoglobin was 9.4 g/dL and the platelet count was 26,000. He is still having lower back pain. An MRI done in December of this year revealed diffuse vertebral metastatic disease without any epidural extension. He also had chronic degenerative changes as well. No unusual bleeding or unexplained bruising. Advanced Directives Power of Canned Food Reconditioning Inspector: No Living Will: No PFSH Medical History Bone cancer Branchial cleft cyst Chronic pain History of chemotherapy Lung cancer Osteoporosis Prostate cancer Smoker Home Medications acetaminophen 650 mg tablet,extended release (Tylenol Arthritis Pain) 1,300 mg PO BID pain 01/04/23 [History Last Taken Unknown] calcium carbonate 600 mg calcium (1,500 mg) tablet 1,200 mg PO TIDWMEAL 01/04/23 [History Last Taken Unknown] enzalutamide 40 mg capsule (Xtandi) 160 mg PO DAILY 01/04/23 [History Last Taken Unknown] gabapentin 100 mg capsule 100 mg PO BID pain 01/04/23 [History Last Taken Unknown] leuprolide (3 month) 11.25 mg (3 month) intramuscular syringe kit (Lupron Depot) 11.25 mg IM [id number] 01/04/23 [History Last Taken Unknown] oxycodone 5 mg tablet See Rx Instructions PO Q6H PRN pain 01/04/23 [History Last Taken Unknown] tamsulosin 0.4 mg capsule 0.4 mg PO QHS 01/04/23 [History Last Taken Unknown] Allergy/AdvReac Type Severity Reaction Status Date / Time No Known Allergies Allergy Verified 03/19/23 20:15 Surgical History no surgical history Social History (Updated 03/19/23 @ 23:[address] Sharonda Dejesus, DO) household members: family housing: house Smoking Status: Current every day smoker tobacco type: cigarettes alcohol intake: never substance use type: does not use Physical Exam Const oriented x3 HEENT HEENT Narrative: Few tiny palatal petechiae. Eyes no scleral icterus Neck no lymphadenopathy Lymph Lymphatic: no lymphadenopathy noted Resp normal respiratory effort and no use of accessory muscles Cardio regular rhythm GI GI Narrative: There is a vague fullness in the right upper quadrant without discrete hepatomegaly. The abdomen is soft throughout there is no splenomegaly or mass. Extremity Extremity Narrative: No swelling of the legs. Skin Skin Narrative: No livedo or bruising noted. No LE petechiae. Neuro no focal motor deficits Vital Signs Temperature 98.4 F 03/20/23 14:00 Temperature Source Oral 03/20/23 14:00 Pulse Rate 101 H 03/20/23 14:00 Pulse Strength Normal (2+) 03/20/23 09:00 Respiratory Rate 18 03/20/23 14:00 Respiratory Effort Normal, Non-Labored 03/20/23 14:00 Respiratory Depth Normal 03/20/23 14:00 Respiratory Pattern Normal 03/20/23 14:00 Blood Pressure 88/64 L 03/20/23 14:00 Blood Pressure Mean 72 03/20/23 14:00 Blood Pressure Source Monitor 03/20/23 14:00 Blood Pressure Position Semi-Fowlers 03/20/23 14:00 Blood Pressure Location Right Arm 03/20/23 14:00 Pulse Ox 93 03/20/23 14:00 Oxygen Delivery Method Room Air 03/20/23 14:00 Laboratory Results - last 24 hr 03/19/23 20:13: POC Glucose 136 H 03/19/23 20:15: WBC 6.5, RBC 4.11 L, Hgb 12.2 L, Hct 40.3, MCV 98.1 H, MCH 29.7, MCHC 30.3 L, RDW Std Deviation 59.0 H, RDW Coeff of Nano 17.1 H, Plt Count 38 L*, MPV TNP, Immature Gran % (Auto) 3.400 H, Neut % (Auto) 64.6, Lymph % (Auto) 23.3, Erie % (Auto) 7.1, Eos % (Auto) 0.5, Baso % (Auto) 1.1 H, Absolute Neuts (auto) 4.2, Absolute Lymphs (auto) 1.51, Nucleated RBC % 0.8, Differential Comment SEE COMMENT, Diff Path Review May foll, Platelet Estimate MKD DEC, RBC Morphology N CHROM, Anisocytosis 1+, Macrocytosis 1+, Sodium 133 L, Potassium 3.8, Chloride 103, Carbon Dioxide 17.0 L, Anion Gap 13, BUN 18, Creatinine 0.77, Estim Creat Clear Calc 101.39, Est GFR (MDRD) Af Amer 132, Est GFR (MDRD) Non-Af 109, BUN/Creatinine Ratio 23.5 H, Glucose 133 H, Calcium 8.4 L, Total Bilirubin 1.10 H, Direct Bilirubin 0.23, GGT 49, AST 264 H, ALT 48, Alkaline Phosphatase 640 H, Troponin I High Sens 291 H*, Total Protein 7.1, Albumin 2.9 L, Globulin 4.2, Lipase 32 03/19/23 21:08: PT 18.0 H, INR 1.5, APTT 34.9, D-Dimer Quant (PE/DVT) 8.85 H* 03/19/23 23:00: Troponin I High Sens 376 H* 03/20/23 03:41: Troponin I High Sens 471 H*, Triglycerides 215 H, Cholesterol 123, LDL Cholesterol 57, VLDL Cholesterol 43 H, HDL Cholesterol 23 L 03/20/23 08:52: WBC 4.5, RBC 3.10 L, Hgb 9.4 L, Hct 27.8 L, MCV 89.7 D, MCH 30.3, MCHC 33.8 D, RDW Std Deviation 53.4 H, RDW Coeff of Nano 16.7 H, Plt Count 24 L*, Immature Gran % (Auto) 2.000 H, Neut % (Auto) 59.5, Lymph % (Auto) 29.8, Erie % (Auto) 7.6, Eos % (Auto) 0.4, Baso % (Auto) 0.7, Absolute Neuts (auto) 2.7, Absolute Lymphs (auto) 1.34, Nucleated RBC % 0.9, Differential Comment SCANNED, Diff Path Review September, Platelet Estimate MKD DEC, Immature Plt Fraction 26.6 H, Plt Morphology Comment LARGE, Retic Count 3.86 H, Immature Retic Fraction 25.60 H, Retic Hgb Equivalent 33.4, Fibrinogen 287, Sodium 137, Potassium 3.6, Chloride 107, Carbon Dioxide 20.0 L, Anion Gap 10, BUN 16, Creatinine 0.58 L, Estim Creat Clear Calc 127.04, Est GFR (MDRD) Af Amer 180, Est GFR (MDRD) Non-Af 149, BUN/Creatinine Ratio 27.4 H, Glucose 107 H, Calcium 7.8 L, Total Bilirubin 1.00, Direct Bilirubin 0.28, AST 218 H, ALT 41, Alkaline Phosphatase 511 H, Lactate Dehydrogenase 780 H, Troponin I High Sens 540 H*, Total Protein 5.9 L, Albumin 2.6 L, Globulin 3.3, Albumin/Globulin Ratio 0.8 L, Direct Antiglob Test NEG w/POLYSPECIFIC Diagnostic Data Brain CT 03/19/23 20:25 IMPRESSION: No acute abnormality or evidence for CVA. Suspicious appearance of the skull, see comments above. Electronically Signed: Ken Claire MD at 20:53 EST Reading Location ID and State: [facility] / [place] , Service support , ADDENDUM: 03/19/232107 IMPRESSION: No acute abnormality or evidence for CVA. Suspicious appearance of the skull, see comments above. N.B. : The above Results were Read Back by Ken Claire MD to Neymar Harvey DO, and understanding confirmed on 03/19/2023 21:01:49 (ET). Electronically Signed: Ken Claire MD at 20:53 EST Reading Location ID and State: [facility] / [place] , Service support , Head/Neck CTA 03/19/23 20:26 IMPRESSION: Normal for age CTA Head and neck with contrast. No occlusions, no significant stenoses. N.B. : The above Results were Read Back by Ken Claire MD to Neymar Harvey and understanding confirmed on 03/19/2023 21:01:41 (ET). Electronically Signed: Ken Claire MD at 21:05 EST Reading Location ID and State: [facility] / [place] , Service support , ADDENDUM: 03/19/232111 IMPRESSION: Normal for age CTA Head and neck with contrast. No occlusions, no significant stenoses. N.B. : The above Results were Read Back by Ken Claire MD to Neymar Harvey and understanding confirmed on 03/19/2023 21:01:41 (ET). Electronically Signed: Ken Claire MD at 21:05 EST Reading Location ID and State: [facility] / [place] , Service support , Chest X-Ray 03/19/23 21:09 IMPRESSION: No acute cardiopulmonary disease seen. Diffuse metastatic prostate cancer. Electronically Signed: Ken Claire MD at 21:19 EST , Bone Scan Nuclear Medicine 03/19/23 21:34 IMPRESSION: 1.. The increase in tracer uptake noted in the distal left femoral diaphysis, the right proximal tibial metaphysis-mid diaphysis, the right temporal skull and right proximal femoral diaphysis may be attributed to osteoblastic turnover secondary to osseous metastatic disease. Plain film radiography correlation may be of benefit. 2. Facilitated uptake noted in the bilateral proximal humeral metaphysis may represent a marrow expansion process, blood dyscrasia. Plain film radiography correlation is recommended. 3. Degenerative arthrosis is demonstrated in both elbows, the bilateral shoulders, the right-left knee articulations, left hip, the cervical and thoracic spine. Electronically Signed: Terrance Andrea DO at 11:32 EST , Chest CTA 03/19/23 22:57 IMPRESSION: No evidence of pulmonary embolism or consolidative pneumonia. Diffuse emphysematous change. Rounded 1.2 cm nodular groundglass opacity in the left lower lobe which may represent atelectasis or scarring. Neoplastic process is not excluded. CT follow-up is recommended in 6 months to assess for resolution. Diffuse sclerotic osteoblastic metastatic disease Electronically Signed: Geovani Rob MD at 0:29 EST , Brain MRI 03/20/23 09:00 IMPRESSION: 1. Tiny acute microembolic ischemic infarcts in both cerebellar hemispheres. 2. Mild mucosal edema of both temporal mastoid bones. Electronically Signed: Ricci Grijalva MD at 10:37 EST , ADDENDUM: 03/20/23 1100 IMPRESSION: 1. Tiny acute microembolic ischemic infarcts in both cerebellar hemispheres. 2. Mild mucosal edema of both temporal mastoid bones. N.B. : The above Results were Read Back by Ricci Grijalva MD to Eileen Kelly MD, and understanding confirmed on 03/20/2023 10:53:49 (ET). Electronically Signed: Ricci Grijalva MD at 10:37 EST ,
--- NOTE | 2023-03-20 19:50 | CT_ITS ---
INDICATION: Early satiety, weight loss, elevated AST and ALP EXAMINATION: CT ABDOMEN AND PELVIS WITH CONTRAST - CT Abdomen And Pelvis W/ Contrast Injection TECHNIQUE: Helically acquired images were obtained of the abdomen and pelvis following IV contrast. A radiation dose optimization technique was used for this scan. IV Contrast dosage and agent: 100 mL of Isovue-370 Oral contrast: 100 mL of Gastrografin enteric contrast. COMPARISON: CT pulmonary angiography of the chest dated March 19, 2023. FINDINGS: Somewhat limited exam with mild motion and step artifacts. LOWER CHEST: Limited assessment due to motion. There does appear to be centrilobular for seem a. Recently described groundglass nodule in the left lower lobe, prior comparison CT chest, is not included in the [id number] on this exam. There does appear to be somewhat improved aeration compared to the prior exam. No cardiomegaly or pericardial effusion. LIVER: Liver shows numerous ill-defined hypodensities concerning for possible metastatic disease. Suboptimal exam with early arterial phase imaging. No definite enlargement. Normal contour without cirrhotic morphology. GALLBLADDER AND BILIARY TREE: No calcified gallstones. No gallbladder distension or wall edema. No intra- or extrahepatic biliary ductal dilation. There is some increased density in the gallbladder likely representing vicarious excretion of iodinated intravenous contrast. PANCREAS: No focal cystic or solid mass. No ductal dilation. SPLEEN: Normal size without focal cystic or solid mass. Limited assessment with early heterogeneous arterial phase imaging. Punctate hyperdensity consistent with calcification. ADRENAL GLANDS: No nodules. KIDNEYS, URETERS and BLADDER: Normal renal size and position. No mass. No hydronephrosis. 18 mm, indeterminate, homogenous hypodensity, 30 Hounsfield units, not clearly consistent with a cyst. 3 mm exophytic cortical lesion medial, upper pole left kidney is too small to characterize. There is also a partially exophytic, 2 cm hilar, homogenous fluid density consistent with a cyst in the left kidney. 2 mm cortical hypodensity too small to characterize right kidney. Excreted contrast is seen in the urinary bladder likely from CT pulmonary angiogram yesterday. This is suspicious for delayed renal excretion. Correlate with renal function tests. PERITONEUM: No ascites or free air. No other fluid collection. BOWEL: No evidence of acute appendicitis. No abnormally distended bowel loops or air fluid levels. No wall thickening or mass. There is some subtle increased hazy density of the perirectal fat. No rectal mass lesion visible. No appreciable lymphadenopathy. LYMPH NODES: No enlarged mesenteric or retroperitoneal lymph nodes. VESSELS: Aorta is non-dilated. Intimal calcifications bilateral iliac branch vessels without aneurysmal dilation or significant luminal narrowing. REPRODUCTIVE ORGANS: Prostate gland is normal size. ABDOMINAL WALL: No discrete abdominal or pelvic wall hernia. BONES: Significant diffuse sclerosis. Given hepatic hypodensities, metastatic disease is favored. Other considerations include metabolic renal disease, hyperparathyroidism, osteopetrosis, and myelofibrosis. CT/Abdomen/Pelvis WITH Contrast IMPRESSION: 1. Numerous hepatic hypodensities likely representing metastatic disease. Clinical correlation is recommended. 2. Significant diffuse osseous sclerosis suspicious for metastatic disease. Other potential etiologies considered as above. 3. Subtle hazy increased density in the perirectal fat without pelvic adenopathy or focal rectal inflammatory changes or mass lesion. 4. Indeterminate, 30 Hounsfield unit, homogenous hypodensity left kidney. Correlation with renal MRI for further characterization, to exclude possible neoplasm, should be considered. Electronically Signed: Pardeep Brooke DO at 20:36 EST ,
--- NOTE | 2023-03-20 20:35 | CPS ---
Patient placed on 2L O2 due to low oxygen saturations
[2023-03-20 21:55] LABS: Lactic Acid 4.2 mmol/L (0.4-1.9)
[2023-03-20] MEDS: 0.9% Normal Saline (1000mL) 1,000 ML 999 ML IV ×2 (22:20→23:50)
--- NOTE | 2023-03-20 22:31 | PN.HOSP_ITS ---
Hospitalist Note Called due to hypotension after patient returned back from imaging. Patient is asymptomatic. Blood pressure was 78 systolic. Check stat lactate which was noted to be elevated at 4.2. Will give bolus with 2 L IV fluids and check stat CBC. Patient is currently awaiting bed for transfer to [facility].
[2023-03-20 22:52] LABS: Absolute Neutrophil Count 2.6 X10^3/uL (2.0-7.7); Basophil# 0.02 X10^3/uL; Basophil% 0.5 % (0-1); Eosinophil# 0.02 X10^3/uL; Eosinophils% 0.5 % (0-5); Hematocrit 26.5 % (40-54); Hemoglobin 8.7 g/dL (13.0-16.5); Lymphocyte % 30.3 % (19-41); Mean Corp Hgb Conc 32.8 g/dL (32-36); Mean Corpuscular Hgb 29.9 pg (27.0-32.0); Mean Corpuscular Volume 91.1 fL (80-94); Monocyte# 0.28 X10^3/uL; Monocyte% 6.5 % (0-10); NRBC Flagged by Analyzer 0.9 % (0-5); Neutrophil % 60.6 % (47-70); POSITIVE COUNT YES; RBC Distribution Width CV 16.7 % (11.6-14.6); RBC Distribution Width SD 54.3 fl (35.1-43.9); Red Blood Count 2.91 M/mm3 (4.6-6.2); White Blood Count 4.3 K/mm3 (4.4-11.0)
[2023-03-20 22:55] LABS: Differential Indicated SCAN CRITERIA MET; Platelet Count 22 K/mm3 (150-450)
--- NOTE | 2023-03-20 23:08 | NURSING ---
pts bp was low when he got back from ct, family in the room, 76/51. much 1:1 spent talking w the and pt. dr smith notified of the low bp, ordered a stat lactic, was 4.2, she then ordered 2l NS BOLUS. pt resting comfortably at this time.
--- NOTE | 2023-03-20 23:52 | NURSING ---
pt very symptomatic, attempted to get pt up to place a mepilex on his sore buttocks and he got very dizzy ,lightheaded, sob and was very nauseated, pt has to sit back and lay down.
[2023-03-21] VITALS (9 sets, daily range): BP systolic 85–106; BP diastolic 66–71; PULSE 95–107; RESP 20–30; TEMP 36.3–36.6; O2SAT 90–95; BMI 22.4
[2023-03-21 01:27] LABS: Reflex Lactate? Y
[2023-03-21] MEDS: Lactated Ringers 1,000 ML 75 ML IV (01:42)
[2023-03-21 01:58] LABS: Absolute Lymphocyte Count 1.24 X10^3/uL (0.83-4.51); Absolute Neutrophil Count 3.2 X10^3/uL (2.0-7.7); Basophil# 0.02 X10^3/uL; Basophil% 0.4 % (0-1); Eosinophil# 0.02 X10^3/uL; Eosinophils% 0.4 % (0-5); Hematocrit 27.1 % (40-54); Lymphocyte # 1.24 X10^3/ul (0.83-4.51); Lymphocyte % 26.1 % (19-41); Mean Corp Hgb Conc 33.2 g/dL (32-36); Mean Corpuscular Hgb 30.1 pg (27.0-32.0); Mean Corpuscular Volume 90.6 fL (80-94); Monocyte# 0.23 X10^3/uL; Monocyte% 4.8 % (0-10); NRBC Flagged by Analyzer 1.1 % (0-5); Neutrophil # 3.16 X10^3/uL (2.7-7.7); Neutrophil % 66.6 % (47-70); POSITIVE COUNT YES; RBC Distribution Width CV 16.9 % (11.6-14.6); RBC Distribution Width SD 54.4 fl (35.1-43.9); Red Blood Count 2.99 M/mm3 (4.6-6.2); White Blood Count 4.8 K/mm3 (4.4-11.0)
[2023-03-21 02:18] LABS: Anion Gap 12 (5-15); BUN 18 mg/dL (7-18); BUN/Creat Ratio 29.9 RATIO (10-20); Calcium,Total 7.9 mg/dL (8.5-10.1); Chloride 107 mmol/L (98-107); EST Glomerular Filtration Rate 144 mL/min (>60); Est Glom Filt Rate - Afr Amer 174 mL/min (>60); Estimated Creatinine Clearance 122.81 ml/min; Glucose 154 mg/dL (74-106); Potassium 3.7 mmol/L (3.5-5.1); Sodium Level 136 mmol/L (136-145)
[2023-03-21 02:28] LABS: Lactic Acid 3.5 mmol/L (0.4-1.9)
[2023-03-21 02:29] LABS: Differential Indicated SCAN CRITERIA MET; Platelet Count 22 K/mm3 (150-450)
--- NOTE | 2023-03-21 02:31 | RAD_ITS ---
INDICATION: sob EXAMINATION/TECHNIQUE: X-RAY - XR Chest 1 View COMPARISON: March 19, 2023 FINDINGS: LINES/DEVICES: None. LUNGS: Lungs symmetrically hyperexpanded. No consolidation, edema or effusion. No pneumothorax. MEDIASTINUM AND CARDIOVASCULAR STRUCTURES: Cardiac silhouette not enlarged. BONES AND SOFT TISSUES: Diffuse osseous sclerosis. RAD/Chest 1 View (Portable) IMPRESSION: Lungs are hyperexpanded as can be seen with obstructive lung disease. No radiographic evidence of consolidative airspace disease or florid edema. Diffuse osseous sclerosis compatible with osteoblastic metastatic disease. Electronically Signed: Geovani Rob MD at 3:35 EST ,
[2023-03-21] MEDS: Midodrine HCl 5 MG Tablet 10 MG PO ×2 (03:01→09:09)
[2023-03-21] MEDS: Vancomycin IV 1,000 MG/200 ML BAG 200 MG IV (03:38)
[2023-03-21] MEDS: Albumin Human 25% (100 mL) 25 GM/100 ML BAG IV (03:48)
--- NOTE | 2023-03-21 04:17 | PCM.RX.CS ---
Consult Antibiotic Management Pharmacy has been consulted to manage selected antiobiotic: Vancomycin Type of Intervention Type of Consult: New start Labs Labs: Sodium 136 mmol/L (136-145) 03/21/23 01:40 Potassium 3.7 mmol/L (3.5-5.1) 03/21/23 01:40 Chloride 107 mmol/L (98-107) 03/21/23 01:40 Carbon Dioxide 17.0 mmol/L (21.0-32.0) L 03/21/23 01:40 Anion Gap 12 (5-15) 03/21/23 01:40 BUN 18 mg/dL (7-18) 03/21/23 01:40 Creatinine 0.60 mg/dL (0.70-1.30) L 03/21/23 01:40 Est GFR (MDRD) Af Amer 174 mL/min (>60) 03/21/23 01:40 Est GFR (MDRD) Non-Af 144 mL/min (>60) 03/21/23 01:40 BUN/Creatinine Ratio 29.9 RATIO (10-20) H 03/21/23 01:40 Glucose 154 mg/dL (74-106) H 03/21/23 01:40 Dosing Weight Weight used for dosin.9 kg Estimated Creatinine Clearance Estimated Creatinine Clearance: 123 Goal Trough Goal Trough: 15-20 mcg/mL Pharmacy Plan for Drug Dosing Pharmacy Plan for Drug Dosing: Pharmacy Service will continue to monitor and adjust dosing as required. Follow-Up Labs Follow-Up Labs: Trough: Vancomycin Date/Time Labs Ordered Labs to be done on [date and time ordered]: 03/22/23 @0303
[2023-03-21 05:13] LABS: Differential Comment SCANNED; Platelet Estimate MKD DEC (ADEQ)
[2023-03-21 05:58] LABS: Mucous, Urine 0 SEEN /hpf (<or=2+); Red Blood Cells-Urine 0 SEEN /hpf (0-5); Squamous Epithelial Cells - UA 0 SEEN /hpf (0-5)
[2023-03-21] MEDS: Piperacil/Tazobactam 3.375 GM in 0.9% Normal Saline (50mL MB+) 50 ML IV (05:58)
[2023-03-21] MEDS: Acetaminophen 500 MG Tablet 1000 MG PO (05:58)
[2023-03-21 05:59] LABS: Color, Urine Yellow (Yellow); Glucose, Dipstick Normal (Normal); Ketone-Dipstick 5 mg/dl (Negative); Leukocyte Esterase-Dipstick 25 /ul (Negative); Nitrite-Dipstick Positive (Negative); Occult Blood-Urine 10 /ul (Negative); Protein-Dipstick 30 mg/dl (Negative); Urine Clarity Clear (Clear); Urine Urobilinogen 8 mg/dl (Normal); Urine pH 6.5 (5.0 - 8.0)
[2023-03-21 06:06] LABS: Bacteria 2+ /hpf (None Seen); Urine Bilirubin Dipstick 1 mg/dL (Negative); White Blood Cells 0-5 SEEN /hpf (0-5)
--- NOTE | 2023-03-21 08:12 | PN.HOSP_ITS ---
Reason for Visit Reason for Visit: Diagnoses Malignant neoplasm of prostate (03/19/23) Secondary malignant neoplasm of bone (03/19/23) Anemia, unspecified (03/19/23) Thrombocytopenia, unspecified (03/19/23) Unspecified severe protein-calorie malnutrition (03/19/23) Other chronic pain (03/19/23) Low back pain, unspecified (03/19/23) Dysarthria and anarthria (03/19/23) Weakness (03/19/23) Abnormal weight loss (03/19/23) Early satiety (03/19/23) Other specified abnormal findings of blood chemistry (03/19/23) Abnormal findings on diagnostic imaging of skull and head, not elsewhere classified (03/19/23) Objective Data Objective Data Vital Signs: Vital Signs Temp Pulse Resp BP Pulse Ox O2 Del Method O2 Flow Rate 97.4 F L 104 H 25 H 97/71 95 Nasal Cannula 3 03/21/23 06:03 03/21/23 06:03 03/21/23 06:03 03/21/23 06:03 03/21/23 06:03 03/21/23 06:03 03/21/23 06:03 Oxygen Flow Rate (L/min) 3 Oxygen Delivery Method Nasal Cannula Weight: 68.9 kg Body Mass Index (BMI) 22.4 Intake & Output: Intake and Output for Last 24 Hours 03/19/23 03/20/23 03/21/23 23:59 23:59 23:59 Intake Total 3950.00 / 3950.00 1900 / 1900 Balance 3950.00 / 3950.00 1900 / 1900 Medical Nutrition Assessment Dietitian: Malnutrition Criteria Met Start: 03/20/23 14:48 Freq: Status: Active Protocol: Document 03/20/23 17:26 RMA (Rec: 03/20/23 17:26 RMA [id number]) Nutrition Malnutrition Evidence of Malnutrition Exists Yes Malnutrition (severe): Chronic Evidenced By Suboptimal Energy Intake ( Severe),Weight Loss (Severe) Clinical Problem Chronic Disease or Condition Related Malnutrition Etiology Severe protein-calorie malnutrition in the context of chronic/metastatic disease related to inadequate energy/ oral intake Signs/Symptoms as evidenced by ~13% weight loss x 2-3 months and PO meeting less than 50% estimated nutrition needs x 3 months Status Active Problem Recommendation Dietitian Recommendations/Changes Recommend advance diet as tolerated to Regular. Will continue 120mL ensure plus high protein 4 times per day w/ medpass. Additional ONS as PO established w/ meals. May need to consider enteral nutrition support to prevent further energy/protein depletion. Lab / Micro Data 03/21/23 01:40 03/21/23 01:40 Labs: Laboratory Results - last 24 hr 03/20/23 08:52: WBC 4.5, RBC 3.10 L, Hgb 9.4 L, Hct 27.8 L, MCV 89.7 D, MCH 30.3, MCHC 33.8 D, RDW Std Deviation 53.4 H, RDW Coeff of Nano 16.7 H, Plt Count 24 L*, Immature Gran % (Auto) 2.000 H, Neut % (Auto) 59.5, Lymph % (Auto) 29.8, [place] % (Auto) 7.6, Eos % (Auto) 0.4, Baso % (Auto) 0.7, Absolute Neuts (auto) 2.7, Absolute Lymphs (auto) 1.34, Nucleated RBC % 0.9, Differential Comment SCANNED, Diff Path Review May foll, Platelet Estimate MKD DEC, Immature Plt Fraction 26.6 H, Plt Morphology Comment LARGE, Retic Count 3.86 H, Immature Retic Fraction 25.60 H, Retic Hgb Equivalent 33.4, Fibrinogen 287, Sodium 137, Potassium 3.6, Chloride 107, Carbon Dioxide 20.0 L, Anion Gap 10, BUN 16, Creatinine 0.58 L, Estim Creat Clear Calc 127.04, Est GFR (MDRD) Af Amer 180, Est GFR (MDRD) Non-Af 149, BUN/Creatinine Ratio 27.4 H, Glucose 107 H, Calcium 7.8 L, Total Bilirubin 1.00, Direct Bilirubin 0.28, AST 218 H, ALT 41, Alkaline Phosphatase 511 H, Lactate Dehydrogenase 780 H, Troponin I High Sens 540 H*, Total Protein 5.9 L, Albumin 2.6 L, Globulin 3.3, Albumin/Globulin Ratio 0.8 L, Direct Antiglob Test NEG w/POLYSPECIFIC 03/20/23 20:20: Lactic Acid 4.2 H* 03/20/23 22:40: WBC 4.3 L, RBC 2.91 L, Hgb 8.7 L, Hct 26.5 L, MCV 91.1, MCH 29.9, MCHC 32.8, RDW Std Deviation 54.3 H, RDW Coeff of Nano 16.7 H, Plt Count 22 L*, MPV TNP, Immature Gran % (Auto) 1.600 H, Neut % (Auto) 60.6, Lymph % (Auto) 30.3, [place] % (Auto) 6.5, Eos % (Auto) 0.5, Baso % (Auto) 0.5, Absolute Neuts (auto) 2.6, Absolute Lymphs (auto) 1.30, Nucleated RBC % 0.9, Differential Comment , Diff Path Review September [facility] 03/21/23 01:40: WBC 4.8, RBC 2.99 L, Hgb 9.0 L, Hct 27.1 L, MCV 90.6, MCH 30.1, MCHC 33.2, RDW Std Deviation 54.4 H, RDW Coeff of Nano 16.9 H, Plt Count 22 L*, MPV TNP, Immature Gran % (Auto) 1.700 H, Neut % (Auto) 66.6, Lymph % (Auto) 26.1, [place] % (Auto) 4.8, Eos % (Auto) 0.4, Baso % (Auto) 0.4, Absolute Neuts (auto) 3.2, Absolute Lymphs (auto) 1.24, Nucleated RBC % 1.1, Differential Comment SCANNED, Diff Path Review September, Platelet Estimate MKD DEC, Sodium 136, Potassium 3.7, Chloride 107, Carbon Dioxide 17.0 L, Anion Gap 12, BUN 18, Creatinine 0.60 L, Estim Creat Clear Calc 122.81, Est GFR (MDRD) Af Amer 174, Est GFR (MDRD) Non-Af 144, BUN/Creatinine Ratio 29.9 H, Glucose 154 H, Lactic Acid 3.5 H*, Calcium 7.9 L 03/21/23 05:47: Urine Color Yellow, Urine Clarity Clear, Urine pH 6.5, Ur Specific [place] 1.010, Urine Protein 30 H, Urine Glucose (UA) Normal, Urine Ketones 5 H, Urine Occult Blood 10 H, Urine Nitrite Positive H, Urine Bilirubin 1 H, Urine Urobilinogen 8 H, Ur Leukocyte Esterase 25 H, Urine RBC 0 SEEN, Urine WBC 0-5 SEEN, Ur Squamous Epith Cells 0 SEEN, Urine Bacteria 2+, Urine Mucus 0 SEEN Radiography Diagnostic Testing: Radiology Impression Bone Scan Nuclear Medicine 03/19/23 21:34 IMPRESSION: 1.. The increase in tracer uptake noted in the distal left femoral diaphysis, the right proximal tibial metaphysis-mid diaphysis, the right temporal skull and right proximal femoral diaphysis may be attributed to osteoblastic turnover secondary to osseous metastatic disease. Plain film radiography correlation may be of benefit. 2. Facilitated uptake noted in the bilateral proximal humeral metaphysis may represent a marrow expansion process, blood dyscrasia. Plain film radiography correlation is recommended. 3. Degenerative arthrosis is demonstrated in both elbows, the bilateral shoulders, the right-left knee articulations, left hip, the cervical and thoracic spine. Electronically Signed: Terrance Andrea DO at 11:32 EST , Echocardiogram 03/19/23 21:34 Interpretation Summary The estimated ejection fraction is 55-60 % Negative bubble study with no evidence of intracardiac shunt or thrombus No significant change from prior echocardiogram done in November 25, 2010 Ordering Physician: Sharonda Dejesus Referring Physician: MD Audra Dominick Performed By: Nikita Mayer [facility] Brain MRI 03/20/23 09:00 IMPRESSION: 1. Tiny acute microembolic ischemic infarcts in both cerebellar hemispheres. 2. Mild mucosal edema of both temporal mastoid bones. Electronically Signed: Ricci Grijalva MD at 10:37 EST , ADDENDUM: 03/20/23 1100 IMPRESSION: 1. Tiny acute microembolic ischemic infarcts in both cerebellar hemispheres. 2. Mild mucosal edema of both temporal mastoid bones. N.B. : The above Results were Read Back by Ricci Grijalva MD to Eileen Kelly MD, and understanding confirmed on 03/20/2023 10:53:49 (ET). Electronically Signed: Ricci Grijalva MD at 10:37 EST , Abdomen/Pelvis CT 03/20/23 19:50 IMPRESSION: 1. Numerous hepatic hypodensities likely representing metastatic disease. Clinical correlation is recommended. 2. Significant diffuse osseous sclerosis suspicious for metastatic disease. Other potential etiologies considered as above. 3. Subtle hazy increased density in the perirectal fat without pelvic adenopathy or focal rectal inflammatory changes or mass lesion. 4. Indeterminate, 30 Hounsfield unit, homogenous hypodensity left kidney. Correlation with renal MRI for further characterization, to exclude possible neoplasm, should be considered. Electronically Signed: Pardeep Brooke DO at 20:36 EST , Chest X-Ray 03/21/23 02:31 IMPRESSION: Lungs are hyperexpanded as can be seen with obstructive lung disease. No radiographic evidence of consolidative airspace disease or florid edema. Diffuse osseous sclerosis compatible with osteoblastic metastatic disease. Electronically Signed: Geovani Rob MD at 3:35 EST , Physical Exam Narrative General: Alert, oriented, no apparent distress HEENT: Atraumatic, normocephalic Eyes: Anicteric, normal conjunctiva, extraocular movements intact, pupils equal Neck: Supple Respiratory: Clear to auscultation bilaterally, normal respiratory effort Cardiovascular: Regular rate and rhythm GI: Soft, nontender, nondistended Extremities: No edema Musculoskeletal: Strength 5 out of 5 in right upper extremity, 5 out of 5 left upper extremity, unable to assess bilateral lower extremities thoroughly due to pain when he moves them Neuro: No overt focal neurological deficits, cranial nerves II through XII intact, [id number] without significant difficulty bilaterally Skin: No rashes appreciated Psych: Cooperative Const alert, oriented x3 and no apparent distress; Negative for healthy appearing or well nourished Constitutional Narrative: Upper middle-aged, white male, lying in bed, appears mildly older than stated age, appears comfortable and nontoxic, thin General Appearance: cooperative HEENT normocephalic and head/scalp atraumatic; Negative for hearing grossly normal bilaterally Eyes PERRL, EOMs intact bilaterally and conjunctivae normal Eyes Narrative: No scleral icterus Neck no lymphadenopathy and supple Neck Narrative: Trachea midline, no thyroid enlargement Resp no retractions, no use of accessory muscles and clear to auscultation bilaterally Resp Narrative: Mildly diminished diffusely worse at the apices bilaterally but no adventitious sounds noted, mild tachypnea Auscultation: Negative for rales, rhonchi or wheezes Cardio regular rate, regular rhythm, S1 normal heart sound, S2 normal heart sound, no murmurs, no rub, no gallops and no clicks GI normal to inspection, nondistended, normoactive bowel sounds, soft to palpation and non-tender GI Narrative: Abdomen is scaphoid Extremity no clubbing, cyanosis or edema Extremity Narrative: Pedal pulses are 2+ Skin no wounds, skin turgor normal, no jaundice, No no petechiae and no mottling Skin Narrative: Mild petechiae noted Neuro oriented x3, CN's II-XII intact bilaterally, moves all extremities and no focal motor deficits Neuro Narrative: Lower extremity reflexes are 2+, significant generalized weakness noted with no focal deficits Speech: speech normal Psych affect normal Psych Narrative: Eye contact is good, patient is very pleasant, interacts appropriately Assessment & Plan Assessment/Plan (1) Elevated troponin: (2) Thrombocytopenia: (3) Dysarthria: (4) Early satiety: PLAN: Plan 62-year-old male history of prostate cancer with metastasis presently on treatment following with Dr. Sotomayor presented to [facility] 03/19/2023 with difficulty with speech that started suddenly at 1 PM and had what sounded to be expressive aphasia. Symptoms lasted for 10 minutes and then resolved. Patient was a stroke call in the ED and it was recommended patient have toxic metabolic work-up and TIA evaluation. Additionally patient reports diffuse weakness and rapid weight loss as well as early satiety with 20 pound weight loss in 30 days. He can only tolerate several bites of cold food for he feels full and cannot eat and if he eats anything warm he vomits immediately and has dry heaving. Patient with elevated AST and alk phos as well as low platelets and elevated troponin. Hospitalist contacted for admission. 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 Platelets are 23, spoke with [facility] stroke physician and given patient's current complicated clinical status with bilateral infarcts he was agreeable to transfer to [facility] Elevated D-dimer -Patient with history of cancer -We will check CTA of the chest with tachypnea and elevated troponin -Echocardiogram is pending for a.m. with above work-up for TIA/stroke -We will not be able to anticoagulate if PE present due to severe thrombocytopenia and would recommend IVC filter placement -03/20: CTA negative, may be elevated secondary to cancer. Nuclear medicine whole-body scan for metastatic disease, bilateral lower extremity duplex Troponin elevation -Patient without chest pain -Patient has subtle EKG changes from EKG compared about 10 years ago with flattening of the T waves inferior laterally -We will cycle cardiac enzymes -Check lipids as above -Hold off on aspirin given severe thrombocytopenia -High intensity dose atorvastatin at this time -Echocardiogram is pending -03/20: Initial troponin 291 up trended to 471, will repeat as it has continued to go up, echo pending Severe thrombocytopenia -Last platelet counts from 02/13/2023 was 117,000 -Currently platelet count is 38,000 -Mild elevation of coags with elevated D-dimer--> could be low-level DIC -Check JOHNATHAN smear -If D-dimer not elevated due to PE or lower extremity DVT would consider heme- onc consultation(follows with Dr. Sotomayor) -Could be from bony metastasis however I would expect all of his cell lines to be more significantly impacted if this was the etiology -03/20: Holding aspirin, trending CBC, oncology consulted. Patient does not seem to be in DIC, additional lab work-up ordered per oncology and it is re commended that patient be transferred to tertiary facility and there is concern for catastrophic APLS Early satiety/weight loss/severe malnutrition -GI consultation for possible EGD consideration -Generalized diet while here -Supplementation with liquid supplements -Patient with about 20 pound weight loss in the last month and has temporal wasting and significant generalized weakness -03/20: Diet supplementation, GI consultation. Discussed with GI and no current plans for EGD, diet added for patient. We will start with full liquid diet Abnormal imaging -Patient with what appears to be diffuse metastatic disease -GGT is normal with significantly elevated alk phos that is worsening -Last alk phos on 1010 was 360 and now up to greater than 600 -We will assess with bone scan--> patient states he gets 1 about every 6 months we will need to identify his most recent once we have results from current -This could be related to worsening metastatic disease related to his prostate cancer -03/20: CTA with diffuse sclerotic osteoblastic metastatic disease and rounded 1.2 cm nodular groundglass opacity in left lower lobe which may represent atelectasis or scarring but neoplastic process cannot be excluded. Oncology consulted Generalized weakness -Etiology is unclear -We will check CK -PT/OT consultation -Case management/social work consultation for discharge planning as patient may need further therapy at discharge -03/20: PT/OT BPH/prostate cancer with bony metastasis -Patient is on Xtandi and Lupron as well as Zometa -Zometa is to stop in June 2023 -Extent of bony metastasis is unclear however appears to be significant on most recent imaging -Bone scan is pending -Continue Flomax -Follows with Dr. Sotomayor -03/20: Continue home medications at present, CTA showed diffuse sclerotic osteoblastic metastatic disease, nuclear med bone scan ordered, will consult oncology Chronic pain -Continue gabapentin -Continue oxycodone Tobacco abuse -Recommend cessation -Patient denies need for nicotine patch DVT prophylaxis -SCDs -Chemoprophylaxis contraindicated due to severe thrombocytopenia with a platelet count of 30,000 CODE STATUS -Full code as verified on admission Time spent in the patient's overall evaluation,decision-making process, review of diagnostic data, adjustment of management, discussion with other providers, nursing nursing and ancillary staff involved in patient's care documentation, 51 minutes
--- NOTE | 2023-03-21 08:22 | ONC.PN.INPT ---
Subjective Subjective No bleeding issues. No abdominal pain subjectively. Received IVFs last night for low BP and was started on empiric broad spectrum antibiotics for increase in lactic acid. Decreased O2 sat. Gets very short of breat if lies on side. No chest pain/pressure or sensation of tachycardia/palpitations. Physical Exam Resp normal respiratory effort Resp Narrative: Tachypnea. Cardio regular rhythm GI GI Narrative: Abdomen remains soft and only mildly tender in epigastrium. Skin Skin Narrative: No petechiae or bruising. Vital Signs Temperature 97.4 F L 03/21/23 06:03 Temperature Source Oral 03/21/23 06:03 Pulse Rate 104 H 03/21/23 06:03 Pulse Strength Normal (2+) 03/20/23 22:00 Respiratory Rate 25 H 03/21/23 06:03 Respiratory Effort Normal 03/20/23 22:00 Respiratory Depth Normal 03/20/23 22:00 Respiratory Pattern Normal 03/20/23 22:00 Blood Pressure 97/71 03/21/23 06:03 Blood Pressure Mean 79 03/21/23 06:03 Blood Pressure Source Monitor 03/21/23 06:03 Blood Pressure Position Semi-Fowlers 03/21/23 06:03 Blood Pressure Location Left Arm 03/21/23 06:03 Pulse Ox 95 03/21/23 06:03 Oxygen Delivery Method Nasal Cannula 03/21/23 06:03 Oxygen Flow Rate (L/min) 3 03/21/23 06:03 Laboratory Results - last 24 hr 03/20/23 08:52: WBC 4.5, RBC 3.10 L, Hgb 9.4 L, Hct 27.8 L, MCV 89.7 D, MCH 30.3, MCHC 33.8 D, RDW Std Deviation 53.4 H, RDW Coeff of Nano 16.7 H, Plt Count 24 L*, Immature Gran % (Auto) 2.000 H, Neut % (Auto) 59.5, Lymph % (Auto) 29.8, [place] % (Auto) 7.6, Eos % (Auto) 0.4, Baso % (Auto) 0.7, Absolute Neuts (auto) 2.7, Absolute Lymphs (auto) 1.34, Nucleated RBC % 0.9, Differential Comment SCANNED, Diff Path Review May joshua, Platelet Estimate MKD DEC, Immature Plt Fraction 26.6 H, Plt Morphology Comment LARGE, Retic Count 3.86 H, Immature Retic Fraction 25.60 H, Retic Hgb Equivalent 33.4, Fibrinogen 287, Sodium 137, Potassium 3.6, Chloride 107, Carbon Dioxide 20.0 L, Anion Gap 10, BUN 16, Creatinine 0.58 L, Estim Creat Clear Calc 127.04, Est GFR (MDRD) Af Amer 180, Est GFR (MDRD) Non-Af 149, BUN/Creatinine Ratio 27.4 H, Glucose 107 H, Calcium 7.8 L, Total Bilirubin 1.00, Direct Bilirubin 0.28, AST 218 H, ALT 41, Alkaline Phosphatase 511 H, Lactate Dehydrogenase 780 H, Troponin I High Sens 540 H*, Total Protein 5.9 L, Albumin 2.6 L, Globulin 3.3, Albumin/Globulin Ratio 0.8 L, Direct Antiglob Test NEG w/POLYSPECIFIC 03/20/23 20:20: Lactic Acid 4.2 H* 03/20/23 22:40: WBC 4.3 L, RBC 2.91 L, Hgb 8.7 L, Hct 26.5 L, MCV 91.1, MCH 29.9, MCHC 32.8, RDW Std Deviation 54.3 H, RDW Coeff of Nano 16.7 H, Plt Count 22 L*, MPV TNP, Immature Gran % (Auto) 1.600 H, Neut % (Auto) 60.6, Lymph % (Auto) 30.3, [place] % (Auto) 6.5, Eos % (Auto) 0.5, Baso % (Auto) 0.5, Absolute Neuts (auto) 2.6, Absolute Lymphs (auto) 1.30, Nucleated RBC % 0.9, Differential Comment , Diff Path Review September03/21/23 01:40: WBC 4.8, RBC 2.99 L, Hgb 9.0 L, Hct 27.1 L, MCV 90.6, MCH 30.1, MCHC 33.2, RDW Std Deviation 54.4 H, RDW Coeff of Nano 16.9 H, Plt Count 22 L*, MPV TNP, Immature Gran % (Auto) 1.700 H, Neut % (Auto) 66.6, Lymph % (Auto) 26.1, [place] % (Auto) 4.8, Eos % (Auto) 0.4, Baso % (Auto) 0.4, Absolute Neuts (auto) 3.2, Absolute Lymphs (auto) 1.24, Nucleated RBC % 1.1, Differential Comment SCANNED, Diff Path Review May foll, Platelet Estimate MKD DEC, Sodium 136, Potassium 3.7, Chloride 107, Carbon Dioxide 17.0 L, Anion Gap 12, BUN 18, Creatinine 0.60 L, Estim Creat Clear Calc 122.81, Est GFR (MDRD) Af Amer 174, Est GFR (MDRD) Non-Af 144, BUN/Creatinine Ratio 29.9 H, Glucose 154 H, Lactic Acid 3.5 H*, Calcium 7.9 L 03/21/23 05:47: Urine Color Yellow, Urine Clarity Clear, Urine pH 6.5, Ur Specific Ryd[place] 1.010, Urine Protein 30 H, Urine Glucose (UA) Normal, Urine Ketones 5 H, Urine Occult Blood 10 H, Urine Nitrite Positive H, Urine Bilirubin 1 H, Urine Urobilinogen 8 H, Ur Leukocyte Esterase 25 H, Urine RBC 0 SEEN, Urine WBC 0-5 SEEN, Ur Squamous Epith Cells 0 SEEN, Urine Bacteria 2+, Urine Mucus 0 SEEN Diagnostic Data Brain CT 03/19/23 20:25 IMPRESSION: No acute abnormality or evidence for CVA. Suspicious appearance of the skull, see comments above. Electronically Signed: Ken Claire MD at 20:53 EST , ADDENDUM: 03/19/232107 IMPRESSION: No acute abnormality or evidence for CVA. Suspicious appearance of the skull, see comments above. N.B. : The above Results were Read Back by Ken Claire MD to Neymar Harvey DO, and understanding confirmed on 03/19/2023 21:01:49 (ET). Electronically Signed: Ken Claire MD at 20:53 EST , Head/Neck CTA 03/19/23 20:26 IMPRESSION: Normal for age CTA Head and neck with contrast. No occlusions, no significant stenoses. N.B. : The above Results were Read Back by Ken Claire MD to Neymar Harvey and understanding confirmed on 03/19/2023 21:01:41 (ET). Electronically Signed: Ken Claire MD at 21:05 EST , ADDENDUM: 03/19/232111 IMPRESSION: Normal for age CTA Head and neck with contrast. No occlusions, no significant stenoses. N.B. : The above Results were Read Back by Ken Claire MD to Neymar Harvey and understanding confirmed on 03/19/2023 21:01:41 (ET). Electronically Signed: Ken Claire MD at 21:05 EST , Bone Scan Nuclear Medicine 03/19/23 21:34 IMPRESSION: 1.. The increase in tracer uptake noted in the distal left femoral diaphysis, the right proximal tibial metaphysis-mid diaphysis, the right temporal skull and right proximal femoral diaphysis may be attributed to osteoblastic turnover secondary to osseous metastatic disease. Plain film radiography correlation may be of benefit. 2. Facilitated uptake noted in the bilateral proximal humeral metaphysis may represent a marrow expansion process, blood dyscrasia. Plain film radiography correlation is recommended. 3. Degenerative arthrosis is demonstrated in both elbows, the bilateral shoulders, the right-left knee articulations, left hip, the cervical and thoracic spine. Electronically Signed: Terrance Andrea DO at 11:32 EST , Echocardiogram 03/19/23 21:34 Interpretation Summary The estimated ejection fraction is 55-60 % Negative bubble study with no evidence of intracardiac shunt or thrombus No significant change from prior echocardiogram done in November 25, 2010 Ordering Physician: Sharonda Dejesus Referring Physician: MD Dominick Zhu Performed By: Nikita Mayer RCS Chest CTA 03/19/23 22:57 IMPRESSION: No evidence of pulmonary embolism or consolidative pneumonia. Diffuse emphysematous change. Rounded 1.2 cm nodular groundglass opacity in the left lower lobe which may represent atelectasis or scarring. Neoplastic process is not excluded. CT follow-up is recommended in 6 months to assess for resolution. Diffuse sclerotic osteoblastic metastatic disease Electronically Signed: Geovani Rob MD at 0:29 EST , Venous Doppler Study 03/20/23 00:56 Interpretation Summary Deep veins of the bilateral lower extremities are patent and compressible segmentally. There is no evidence of bilateral lower extremity deep vein thrombosis. The bilateral great saphenous veins appear patent and compressible segmentally. Ordering Physician: Sharonda Dejesus Performed By: Feliciano Goode, RVT Brain MRI 03/20/23 09:00 IMPRESSION: 1. Tiny acute microembolic ischemic infarcts in both cerebellar hemispheres. 2. Mild mucosal edema of both temporal mastoid bones. Electronically Signed: Ricci Grijalva MD at 10:37 EST , ADDENDUM: 03/20/23 1100 IMPRESSION: 1. Tiny acute microembolic ischemic infarcts in both cerebellar hemispheres. 2. Mild mucosal edema of both temporal mastoid bones. N.B. : The above Results were Read Back by Ricci Grijalva MD to Eileen Kelly MD, and understanding confirmed on 03/20/2023 10:53:49 (ET). Electronically Signed: Ricci Grijalva MD at 10:37 EST , Abdomen/Pelvis CT 03/20/23 19:50 IMPRESSION: 1. Numerous hepatic hypodensities likely representing metastatic disease. Clinical correlation is recommended. 2. Significant diffuse osseous sclerosis suspicious for metastatic disease. Other potential etiologies considered as above. 3. Subtle hazy increased density in the perirectal fat without pelvic adenopathy or focal rectal inflammatory changes or mass lesion. 4. Indeterminate, 30 Hounsfield unit, homogenous hypodensity left kidney. Correlation with renal MRI for further characterization, to exclude possible neoplasm, should be considered. Electronically Signed: Pardeep Brooke DO at 20:36 EST , Chest X-Ray 03/21/23 02:31 IMPRESSION: Lungs are hyperexpanded as can be seen with obstructive lung disease. No radiographic evidence of consolidative airspace disease or florid edema. Diffuse osseous sclerosis compatible with osteoblastic metastatic disease. Electronically Signed: Geovani Rob MD at 3:35 EST , Assessment & Plan Assessment/Plan (1) Anemia: QUALIFIERS: Anemia type: unspecified type Qualified Code(s): D64.9 - Anemia, unspecified (2) Thrombocytopenia: (3) Early satiety: PLAN: Plan Impression: -Severe thrombocytopenia and moderate anemia. -Started on high dose methylprednisolone last evening (ITP vs CAPS) -No sign of GI bleeding. -Duplex US negative for DVT. -No more short of breath. -Personally reviewed CT images and discussed results with patient. Stomach wall appears markedly thickened all around. Possible liver metastases. -Potentially new gastric cancer. Plan: -Recheck CBC, PT, PTT and fibrinogen. -Awaiting haptoglobin, anticardiolipin antibodies and STAT lupus anticoagulant testing. -Continue methylprednisolone. -Cardiology consult. -Recommend EKG and repeat troponin. -CXR to assess for volume overload. -May have to consider V/Q scan if no evidence volume overload (has had several contrast CTs). -Needs EGD once stablized. -Awaiting transfer to [facility].
[2023-03-21 09:14] LABS: Absolute Lymphocyte Count 1.18 X10^3/uL (0.83-4.51); Absolute Neutrophil Count 3.2 X10^3/uL (2.0-7.7); Basophil# 0.01 X10^3/uL; Basophil% 0.2 % (0-1); Eosinophil# 0.01 X10^3/uL; Eosinophils% 0.2 % (0-5); Hematocrit 25.7 % (40-54); Hemoglobin 8.5 g/dL (13.0-16.5); Lymphocyte # 1.18 X10^3/ul (0.83-4.51); Lymphocyte % 24.9 % (19-41); Mean Corp Hgb Conc 33.1 g/dL (32-36); Mean Corpuscular Hgb 30.1 pg (27.0-32.0); Mean Corpuscular Volume 91.1 fL (80-94); Monocyte# 0.27 X10^3/uL; Monocyte% 5.7 % (0-10); NRBC Flagged by Analyzer 1.5 % (0-5); Neutrophil # 3.17 X10^3/uL (2.7-7.7); Neutrophil % 67.1 % (47-70); POSITIVE COUNT YES; RBC Distribution Width SD 54.4 fl (35.1-43.9); Red Blood Count 2.82 M/mm3 (4.6-6.2); White Blood Count 4.7 K/mm3 (4.4-11.0)
[2023-03-21 09:19] LABS: Differential Indicated SCAN CRITERIA MET; International Normalized Ratio 1.7; Platelet Count 22 K/mm3 (150-450); Prothrombin Time (Protime)PT. 20.5 SECONDS (11.7-14.9)
[2023-03-21 09:21] LABS: Fibrinogen 235 mg/dl (203-444); Partial Thromboplast Time 41.5 Seconds (24.1-36.2)
--- NOTE | 2023-03-21 09:30 | NURSING ---
Patient became unresponsive while aid was assisting patient from BSC back to bed. Called staff alert. Upon arrival patient did not have pulse. CPR started. See code blue documentation
[2023-03-21 09:45] LABS: Differential Comment SCANNED; Platelet Estimate MKD DEC (ADEQ); Platelet Morphology LARGE
[2023-03-21 10:06] LABS: Pathologist Review Reviewed
[2023-03-21 10:09] LABS: Pathologist Review Reviewed
--- NOTE | 2023-03-21 10:11 | PCM.CODE.SUM ---
Code Blue Report Code Blue Summary Code Blue Summary: Patient is a 62-year-old gentleman with history of metastatic prostate CA as well as suspected gastric CA who presented with dysarthria was found to have elevated troponin with bilateral tiny cerebellar clots in both hemispheres. Plan was for patient to be transferred to [facility] for subsequent care given his significant low platelet count. Patient did receive IV fluid the night prior as a result of hypotension. Patient was found to be significantly dyspneic on the morning of 03/21/2023. A rapid response was called in view of rapidly deteriorating clinical condition. Patient went into cardiac pulmonary arrest. Resuscitation was initiated using ACLS protocol. Patient rhythm throughout the resuscitation was pulseless electrical activity. Patient did receive rounds of epinephrine as well as bicarb in addition to CPR. Patient was intubated during the resuscitation attempts. Patient's happened to be in the room and requested for discontinuation of resuscitation effort after almost 20 minutes. Patient was pronounced at 0947
--- NOTE | 2023-03-21 10:28 | CASEMGMT ---
SW responded to a rapid response and then code blue for patient. Patient's was present in the room and was visibly upset as she was crying. SW asked patient's if she would like to step out of the room and she wanted to stay. SW stayed with patient and provided emotional support throughout the code. Patient did not make it. SW continued to provide support and offered to call family. Patient's said she will call family. A friend of the family was present as well offering support. A family member arrived. SW told them SW will give them some privacy and step out. SW did tell them SW is available. Sunshine Donnelly RD LAB TECHNICIAN [facility]
--- NOTE | 2023-03-21 11:50 | EXP.PCM_ITS ---
Preliminary Cause of Preliminary Cause of Preliminary Cause of : Cardiopulmonary arrest Acute hypoxia Acute myocardial ischemia Date of Admission: 03/19/23 Date of : 03/21/23 Principle Diagnosis Problem List: Active and Suspected Problems (Updated 03/20/23 @ 17:[address] Valente Rodríguez, DO) Anemia (Acute) Weight loss (Acute) Early satiety (Acute) Abnormal skull or facial bone diagnostic imaging (Acute) Severe malnutrition (Acute) Dysarthria (Acute) Weakness (Acute) Thrombocytopenia (Acute) Elevated troponin (Acute) Low back pain (Acute) Prostate cancer metastatic to bone (Acute) Hospital Course Patient is a 62-year-old gentleman with history of metastatic prostate CA as well as suspected gastric CA who presented with dysarthria was found to have elevated troponin with bilateral tiny cerebellar clots in both hemispheres. Plan was for patient to be transferred to [facility] for subsequent care given his significant low platelet count. Patient did receive IV fluid the night prior as a result of hypotension. Patient was found to be significantly dyspneic on the morning of 03/21/2023. A rapid response was called in view of rapidly deteriorating clinical condition. Patient went into cardiac pulmonary arrest. Resuscitation was initiated using ACLS protocol. Patient rhythm throughout the resuscitation was pulseless electrical activity. Patient did receive rounds of epinephrine as well as bicarb in addition to CPR. Patient was intubated during the resuscitation attempts. Patient's happened to be in the room and requested for discontinuation of resuscitation effort after almost 20 minutes. Patient was pronounced at 0947 Visit Charges Inpatient E&M: 81203 Disch Hosp
--- NOTE | 2023-03-21 14:48 | CHAPLAIN ---
Type of Pastoral Visit ___ Initial Visit ___ Follow-up Visit ___ On-call Visit ___ General Patient Visit ___ Spiritual Assessment ___ Family Conference _xxxxx__ Bereavement ___ Rapid Response ___ Code Blue ___ Other (describe below) Pastoral Care Referral From ___ Patient ___ Family ___ Nurse ___ Physician ___ Transportation Attendant ___ Offal Trimmer ___ Other (describe below) Sacrament/Intervention ___ Active listening ___ Anointing ___ Faith _x__ Bereavement ___ Communion ___ Arabella exploration ___ ___ Life review ___ Prayer ___ Reconciliation ___ Sacrament of Sick ___ Supportive presence ___ Wedding ___ Other (describe below) Pastoral Comments after meeting this patient yesterday, this request for visit came in through SENIOR PENSIONS ADMINISTRATOR due to code blue before arrival of this pan cleaner; upon entering room it was acknowledged that pt had ; several family members are in the room including the spouse who was also met yesterday in the prior visit; spouse is appropriately grieving along with two children and a granddaughter, and a sister in law; spouse identifies her spiritual concern as well as the son in the hallway about the preparedness of pt to have peace with God or to having been saved; several other family members will not be arriving; family is about ready to leave the building; a moment of reflection and prayer is offered and accepted gratefully; time to listen to family members and to process the shock of what happened; offer of presence or help with any questions is made
[2023-03-22 10:47] LABS: Pathologist Review Reviewed
[2023-03-22 10:48] LABS: Pathologist Review Reviewed
[2023-03-24 20:08] LABS: Anti-Cardiolipin Ab, IgG, Qn < 9 GPL U/mL (0-14); Anti-Cardiolipin Ab, IgM, Qn 11 MPL U/mL (0-12); Dilute Prothrombin Time (dPT) 48.7 sec (0.0-47.6); Dilute Russell Viper Venom Mix 43.9 sec (0.0-40.4); Haptoglobin < 10 mg/dL (32-363); Hexagonal Phase Phospholipid 2 8 sec (0-11); Interpretation Comment: (.); PTT-LA 52.6 sec (0.0-43.5); PTT-LA Mix 49.1 sec (0.0-40.5); Thrombin Time 18.5 sec (0.0-23.0)
[2023-03-26 09:39] LABS: Pathologist Review Reviewed
== END 2023-03-21 09:47 | DRG 64 ==
LOC: ED 21:28 → PCU 21:38
PROVIDERS: Internal Medicine; Internal Medicine Hematology & Oncology; Admitting Provider Internal Medicine; Emergency Provider Emergency Medicine; PCP Family Medicine; Visit Provider Internal Medicine
DX: I63.443 Cerebral infarction due to embolism of bilateral cerebellar arteries (principal); E43 Unspecified severe protein-calorie malnutrition; C79.51 Secondary malignant neoplasm of bone; D68.61 Antiphospholipid syndrome; C16.9 Malignant neoplasm of stomach, unspecified; Z68.42 Body mass index [BMI] 45.0-49.9, adult; C78.00 Secondary malignant neoplasm of unspecified lung; D69.6 Thrombocytopenia, unspecified; I51.3 Intracardiac thrombosis, not elsewhere classified; C61 Malignant neoplasm of prostate; I46.9 Cardiac arrest, cause unspecified; D64.9 Anemia, unspecified; F17.210 Nicotine dependence, cigarettes, uncomplicated; M54.50 Low back pain, unspecified; I95.9 Hypotension, unspecified; R63.4 Abnormal weight loss; R29.704 NIHSS score 4; R09.02 Hypoxemia; R47.1 Dysarthria and anarthria; R68.81 Early satiety; G89.29 Other chronic pain; N40.0 Benign prostatic hyperplasia without lower urinary tract symptoms; Z79.891 Long term (current) use of opiate analgesic
CPT/HCPCS: 31500; 36415; 70450; 70496; 70498; 70551; 71045; 71275; 74177; 78306; 80048; 80053; 80061; 80076; 81001; 82248; 82962; 82977; 83010; 83605; 83615; 83690; 84484; 85025; 85045; 85379; 85384; 85610; 85730; 86147; 86880; 87040; 87086; 92950; 93005; 93306; 93970; 94668; 94762; 97162; 97166; 97802; 99284; 99406; A9503; J7030; J7120; P9047; Q9967; A4216